=== PATIENT | male | born 1975 | race American Indian/Alaskan Native ===

== ENCOUNTER 2017-10-27 00:51 | Emergency (ER) | payer OTHER ==
[2017-10-27 01:42] LABS: Calcium 9.2 mg/dL (8.4-10.2)
[2017-10-27 01:51] LABS: Basophils # (Auto) 0.1 K/mm3 (0.0-0.1); Basophils % (Auto) 0.9 % (0.0-1.8); Eosinophils % (Auto) 0.6 % (0.0-4.3); Hematocrit 34.9 % (35.5-45.6); Hemoglobin 11.3 gm/dl (11.8-15.2); Lymphocytes # (Auto) 1.1 K/mm3 (1.2-5.4); Lymphocytes % (Auto) 12.9 % (13.4-35.0); Mean Corpuscular HGB Conc 32 % (32-34); Mean Corpuscular Hemoglobin 29 pg (28-32); Mean Corpuscular Volume 89 fl (84-94); Monocytes # (Auto) 0.5 K/mm3 (0.0-0.8); Monocytes % (Auto) 6.5 % (0.0-7.3); Platelet Count 182 K/mm3 (140-440); Red Cell Distribution Width 14.7 % (13.2-15.2)
[2017-10-27 03:24] LABS: Bilirubin,Urine NEG (Negative); Blood,Urine SM (Negative); Color,Urine Yellow (Yellow); Hyaline Casts,Urine 13 /LPF; Mucus,Urine FEW /HPF; Urobilinogen,Urine < 2.0 mg/dL (<2.0)
[2017-10-27] MEDS ORDERED: NACL 0.9% 1000 ML 1,000 ML IV ONE (06:48)
[2017-10-27] MEDS ORDERED: HumuLIN R IV ONE (06:48)
--- NOTE | 2017-10-27 06:48 | Emergency Department Report ---
HPI - General Chief Complaint: Wound/Laceration Time Seen by Provider: 10/27/17 06:40 - HPI HPI: 42-year-old -[place] male presents to the emergency department last night with a complaint of right foot pain. The patient has a history of a chronic diabetic ulcer/wound to that right foot and he says "it has never closed. However he just recently started having some intense throbbing pains. He states that he does a lot of walking. The patient also presents with elevated blood sugar. He is a insulin-dependent diabetic and says he has been compliant with his medications. He also has a history of GERD, hypertension, chronic kidney disease and gastroparesis. He has primary care through [facility]. He did not take anything for her symptoms prior to presentation. He denies any fever, nausea, vomiting, chest pain, shortness of breath. ED Past Medical Hx - Past Medical History Previous Medical History?: Yes Hx Hypertension: Yes Hx Congestive Heart Failure: No Hx Diabetes: Yes Hx GERD: Yes Hx Renal Disease: Yes Hx Asthma: No Hx COPD: No Hx HIV: No Additional medical history: Gastroparesis - Surgical History Past Surgical History?: Yes Hx Cholecystectomy: Yes Additional Surgical History: right foot - Social History Smoking Status: Never Smoker Substance Use Type: Marijuana - Medications Home Medications: Home Medications Medication Instructions Recorded Confirmed Last Taken Type Insulin NPH Hum/Reg Insulin Hm 10 units SQ BID #1 vial 07/24/14 07/09/16 Rx [NovoLIN 70-30 100 Unit/ml Vial] Lisinopril [Zestril TAB] 10 mg PO QDAY #30 tablet 07/10/16 Unknown Rx HYDROcodone/ACETAMINOPHEN [[place] 1 each PO Q8H PRN #10 tablet 10/27/17 Unknown Rx 5-325 Tablet] Sulfamethoxazole/Trimethoprim 1 each PO BID #14 tablet 10/27/17 Unknown Rx [Bactrim DS TAB] ED Review of Systems ROS: Stated complaint: RIGHT FOOT LACERATION Other details as noted in HPI Comment: All other systems reviewed and negative Constitutional: denies: chills, fever Eyes: denies: eye pain, eye discharge, vision change ENT: denies: ear pain, throat pain Respiratory: denies: cough, shortness of breath, wheezing Cardiovascular: denies: chest pain, palpitations Endocrine: increased thirst, increased urine Gastrointestinal: denies: abdominal pain, nausea, diarrhea Genitourinary: frequency. denies: dysuria Musculoskeletal: arthralgia. denies: back pain Skin: other (wound). denies: rash Neurological: denies: headache, weakness, paresthesias Physical Exam - Physical Exam Vital Signs: Vital Signs 10/27/17 10/27/17 00:56 06:16 Temperature 98.0 F 98.2 F Pulse Rate 110 H 108 H Respiratory 18 Rate Blood Pressure 108/63 Blood Pressure 110/63 [Left] O2 Sat by Pulse 98 Oximetry Physical Exam: GENERAL: The patient is well-developed well-nourished. HENT: Normocephalic. Atraumatic. Patient has moist mucous membranes. EYES: Extraocular motions are intact. Pupils equal reactive to light bilaterally. NECK: Supple. Trachea is midline. CHEST/LUNGS: Clear to auscultation. There is no respiratory distress noted. HEART/CARDIOVASCULAR: Regular. There is no tachycardia. There is no murmur. ABDOMEN: Abdomen is soft, nontender. Patient has normal bowel sounds. There is no abdominal distention. SKIN: There is a circular stage II ulcer to the right lateral midfoot. No surrounding erythema. No bleeding or discharge. NEURO: The patient is awake, alert, and oriented. The patient is cooperative. The patient has no focal neurologic deficits. The patient has normal speech. MUSCULOSKELETAL: There is some mild tenderness on patient to the right midfoot with the patient has a ulcer/wound. There is no limitation range of motion. Pedal pulses +2 over 4 to the affected right foot. ED Course Vital Signs 10/27/17 10/27/17 00:56 06:16 Temperature 98.0 F 98.2 F Pulse Rate 110 H 108 H Respiratory 18 Rate Blood Pressure 108/63 Blood Pressure 110/63 [Left] O2 Sat by Pulse 98 Oximetry ED Medical Decision Making - Lab Data Result diagrams: 10/27/17 01:06 10/27/17 10:07 - Radiology Data Radiology results: report reviewed EXAM: XR FOOT 3+V RT HISTORY: diabetic wound, rule out osteomyelitis TECHNIQUE: Three views of the right foot were submitted. There are no previous studies available for comparison. FINDINGS: There is previous amputation of the distal end of the 5th metatarsal. The amputation stump appears intact. The 5th toe is unremarkable. There is soft tissue swelling overlying the lateral aspect of the base of the 5th metatarsal. There are no definite erosive changes that would suggest osteomyelitis at this time. IMPRESSION: Status post amputation of the distal end of the 5th metatarsal. The amputation stump appears intact. Soft tissue swelling/cellulitis along the lateral aspect overlying the base of the 5th metatarsal. No erosive changes to suggest osteomyelitis. MRI of the foot is recommended for better overall valuation for marrow edema/osteomyelitis. Transcribed By: RB Dictated By: ANDRES NAVA MD Electronically Authenticated By: ANDRES NAVA MD Signed Date/Time: 10/27/17 3510 - Medical Decision Making Patient presented originally with pain to the foot where he has a diabetic ulcer. However he was found to have very elevated blood sugar and uncontrolled diabetes. Regarding the foot pain and also, x-ray was done that showed some soft tissue swelling but no signs of osteomyelitis. Patient was empirically covered with a IV dose of vancomycin. He was given a single IV dose of regular insulin and a liter of IV fluid and upon reevaluation his blood sugar is down to about 130. His venous pH and BMP were rechecked and there is no further acidosis and the rest of the blood work is improved as well. Vital signs stable throughout his course. The patient says that he has a primary care physician for follow-up. He will be given antibiotics, a small amount of pain medication and a referral for podiatry. He has been encouraged to return to the emergency Department with any worsening of symptoms or any acute distress. - Differential Diagnosis diabetic foot ulcer, DKA, HHNK, cellulitis Critical Care Time: No Critical care attestation.: If time is entered above; I have spent that time in minutes in the direct care of this critically ill patient, excluding procedure time. ED Disposition Clinical Impression: Hyperglycemia without ketosis, Renal insufficiency Diabetes Qualifiers: Diabetes mellitus type: type 2 Diabetes mellitus complication status: with hyperglycemia Diabetic foot ulcer Qualifiers: Diabetic foot ulcer location: midfoot Diabetes mellitus type: type 2 Laterality : right Non-pressure ulcer stage: with fat layer exposed Qualified Code(s): E11.621 - Type 2 diabetes mellitus with foot ulcer Disposition: DC-01 TO HOME OR SELFCARE Is pt being admited?: No Condition: Stable Instructions: Diabetic Foot Ulcers (ED), Arthralgia (ED), Diabetic Hyperglycemia (ED) Additional Instructions: Please follow up with your primary care physician in the next few days. I have given you a referral for a local eye surgeon, Dr. King, as well as a wound care clinic. Take the antibiotics as prescribed. Keep the area clean with soap and water and then keep it dry. Keep a blood pressure log and continue with your diabetes medications. Try and stay away from foods that are high in sugar, carbohydrates and starches to help with her diabetes. Return to the emergency Department with any worsening of your symptoms or any acute distress. You have been prescribed a medication that is sedating and therefore should not be taken prior to driving, working, and responsible for children and in no way should be mixed with alcohol of any quantity. Prescriptions: HYDROcodone/ACETAMINOPHEN [[place] 5-325 Tablet] 1 each PO Q8H PRN #10 tablet PRN Reason: Pain Sulfamethoxazole/Trimethoprim [Bactrim DS TAB] 1 each PO BID #14 tablet Referrals: MANSOOR KING MD [Staff Physician] - 3-5 Days [facility] [Outside] - 3-5 Days Time of Disposition: 11:31
[2017-10-27] MEDS ORDERED: VANCOMYCIN/NS 1 GM/250 ML 1 GM/250 ML BAG IV SCH (07:00)
[2017-10-27] MEDS ORDERED: VANCOMYCIN/0.45 NS 1 GM/250 ML 1 GM/250 ML BAG IV ONE (07:00)
--- NOTE | 2017-10-27 07:15 | XRay Report ---
FINAL REPORT EXAM: XR FOOT 3+V RT HISTORY: diabetic wound, rule out osteomyelitis TECHNIQUE: Three views of the right foot were submitted. There are no previous studies available for comparison. FINDINGS: There is previous amputation of the distal end of the 5th metatarsal. The amputation stump appears intact. The 5th toe is unremarkable. There is soft tissue swelling overlying the lateral aspect of the base of the 5th metatarsal. There are no definite erosive changes that would suggest osteomyelitis at this time. IMPRESSION: Status post amputation of the distal end of the 5th metatarsal. The amputation stump appears intact. Soft tissue swelling/cellulitis along the lateral aspect overlying the base of the 5th metatarsal. No erosive changes to suggest osteomyelitis. MRI of the foot is recommended for better overall valuation for marrow edema/osteomyelitis.
[2017-10-27] MEDS ORDERED: NORCO 5/325 PO ONE (08:30)
[2017-10-27 10:44] LABS: Calcium 9.1 mg/dL (8.4-10.2)
[2017-10-27 11:53] VITALS: BP 149/97
== END 2017-10-27 11:56 | disposition home or self-care (01) ==
LOC: ED 00:51
DX: E11.22 Type 2 diabetes mellitus with diabetic chronic kidney disease (principal); E11.621 Type 2 diabetes mellitus with foot ulcer; E11.65 Type 2 diabetes mellitus with hyperglycemia; I12.9 Hypertensive chronic kidney disease with stage 1 through stage 4 chronic kidney disease, or unspecified chronic kidney disease; N18.9 Chronic kidney disease, unspecified; K21.9 Gastro-esophageal reflux disease without esophagitis; F12.10 Cannabis abuse, uncomplicated; Z79.4 Long term (current) use of insulin; Z90.49 Acquired absence of other specified parts of digestive tract
CPT/HCPCS: 36415; 73630; 80048; 81001; 82805; 82962; 83930; 85025; 96361; 96365; 96375; 99284; J7030; J1815; J3370

== ENCOUNTER 2017-12-15 20:52 | Inpatient (IN) | payer OTHER ==
[2017-12-15 21:43] LABS: Basophils # (Auto) 0.1 K/mm3 (0.0-0.1); Basophils % (Auto) 0.6 % (0.0-1.8); Hematocrit 41.1 % (35.5-45.6); Hemoglobin 13.2 gm/dl (11.8-15.2); Lymphocytes # (Auto) 1.9 K/mm3 (1.2-5.4); Lymphocytes % (Auto) 12.1 % (13.4-35.0); Mean Corpuscular HGB Conc 32 % (32-34); Mean Corpuscular Hemoglobin 28 pg (28-32); Mean Corpuscular Volume 88 fl (84-94); Monocytes # (Auto) 1.1 K/mm3 (0.0-0.8); Monocytes % (Auto) 6.7 % (0.0-7.3); Red Blood Count 4.67 M/mm3 (3.65-5.03); Red Cell Distribution Width 14.6 % (13.2-15.2)
[2017-12-15 21:44] LABS: Platelet Count 183 K/mm3 (140-440)
[2017-12-15 21:58] LABS: Bacteria,Urine 1+ /HPF (Negative); Bilirubin,Urine NEG (Negative); Blood,Urine MOD (Negative); Color,Urine Yellow (Yellow); Hyaline Casts,Urine 1 /LPF; Mucus,Urine FEW /HPF; Urobilinogen,Urine < 2.0 mg/dL (<2.0)
[2017-12-15 22:10] LABS: Albumin 4.3 g/dL (3.9-5); Calcium 10.4 mg/dL (8.4-10.2)
[2017-12-15] MEDS ORDERED: NACL 0.9% 1000 ML 1,000 ML IV ONE (23:42)
[2017-12-15] MEDS ORDERED: SUBLIMAZE IV ONE (23:47)
[2017-12-15] MEDS ORDERED: ZOFRAN IV ONE (23:47)
[2017-12-15] MEDS ORDERED: PEPCID IV ONE (23:50)
--- NOTE | 2017-12-15 23:52 | Emergency Department Report ---
HPI - General Chief Complaint: Abdominal Pain Time Seen by Provider: 12/15/17 23:40 - HPI HPI: Room 5 The patient is a 42-year-old male presenting with a chief complaint of abdominal pain nausea and vomiting. The patient states today his "acid reflux started acting up" and he developed intractable nausea and vomiting. Patient also complains of burning pain in the midepigastric region constant since this morning. Patient denies fever or diarrhea. Patient denies sick contacts. Patient denies dysuria. The patient gives his pain a score of 10/10 Location: Abdomen Duration: Constant since this morning Quality: Burning Severity: 10/10 Modifying factors: [see above] Context: [see above] Mode of transportation: [not driving] ED Past Medical Hx - Past Medical History Hx Hypertension: Yes Hx Diabetes: Yes Hx GERD: Yes Hx Renal Disease: Yes Additional medical history: Gastroparesis - Surgical History Hx Cholecystectomy: Yes Additional Surgical History: right foot - Family History Family history: no significant - Social History Smoking Status: Never Smoker Substance Use Type: None, Marijuana - Medications Home Medications: Home Medications Medication Instructions Recorded Confirmed Last Taken Type Insulin NPH Hum/Reg Insulin Hm 10 units SQ BID #1 vial 07/24/14 07/09/16 Rx [NovoLIN 70-30 100 Unit/ml Vial] HYDROcodone/ACETAMINOPHEN [[place] 1 each PO Q8H PRN #10 tablet 10/27/17 Unknown Rx 5-325 Tablet] ED Review of Systems ROS: Stated complaint: ABD PAIN,HYPERGLYCEMIA Other details as noted in HPI Constitutional: denies: fever Eyes: denies: eye pain ENT: denies: throat pain Cardiovascular: denies: chest pain Gastrointestinal: abdominal pain, nausea, vomiting. denies: diarrhea Genitourinary: denies: dysuria Musculoskeletal: denies: back pain Neurological: denies: headache Physical Exam - Physical Exam Vital Signs: Vital Signs 12/15/17 12/15/17 20:56 21:08 Temperature 99.7 F H 99.7 F H Pulse Rate 114 H 114 H Respiratory 22 22 Rate Blood Pressure 147/97 147/97 O2 Sat by Pulse 99 100 Oximetry Physical Exam: GENERAL: The patient is well-developed well-nourished male lying on stretcher appearing to be in mild discomfort. [] HEENT: Normocephalic. Atraumatic. Extraocular motions are intact. NECK: Supple. Trachea midline CHEST/LUNGS: Clear to auscultation. There is no respiratory distress noted. HEART/CARDIOVASCULAR: Regular. There is no tachycardia. There is no gallop rub or murmur. ABDOMEN: Abdomen is soft, and nontender to palpation in the left upper quadrant , left lower quadrant, right lower quadrant. There is trace discomfort to palpation in the right upper quadrant and patient complains of pain in the midepigastric region. Patient has normal bowel sounds. There is no abdominal distention. SKIN: There is no rash. There is no edema. There is no diaphoresis. NEURO: The patient is awake, alert, and oriented. The patient is cooperative. The patient has normal speech MUSCULOSKELETAL: There is no evidence of acute injury. ED Course Vital Signs 12/15/17 12/15/17 20:56 21:08 Temperature 99.7 F H 99.7 F H Pulse Rate 114 H 114 H Respiratory 22 22 Rate Blood Pressure 147/97 147/97 O2 Sat by Pulse 99 100 Oximetry ED Medical Decision Making - Lab Data Result diagrams: 12/15/17 21:17 12/15/17 21:17 Laboratory Tests 12/15/17 12/15/17 12/15/17 21:17 21:17 21:17 WBC 16.0 H RBC 4.67 Hgb 13.2 Hct 41.1 MCV 88 MCH 28 MCHC 32 RDW 14.6 Plt Count 183 Lymph % (Auto) 12.1 L [place] % (Auto) 6.7 Eos % (Auto) 0.0 Baso % (Auto) 0.6 Lymph # 1.9 [place] # 1.1 H Eos # 0.0 Baso # 0.1 Seg Neutrophils % 80.6 H Seg Neutrophils # 12.9 H VBG pH 7.427 H Sodium 132 L Potassium 4.4 Chloride 90.8 L Carbon Dioxide 21 L Anion Gap 25 BUN 44 H Creatinine 2.8 H Estimated GFR 30 BUN/Creatinine Ratio 16 Glucose 349 H Calcium 10.4 H Total Bilirubin 0.40 AST 17 ALT 15 Alkaline Phosphatase 138 H Total Protein 8.7 H Albumin 4.3 Albumin/Globulin Ratio 1.0 Lipase 20 Urine Color Urine Turbidity Urine pH Ur Specific [place] Urine Protein Urine Glucose (UA) Urine Ketones Urine Blood Urine Nitrite Urine Bilirubin Urine Urobilinogen Ur Leukocyte Esterase Urine WBC (Auto) Urine RBC (Auto) U Epithel Cells (Auto) Urine Bacteria (Auto) Hyaline Casts Urine Mucus 12/15/17 Unknown WBC RBC Hgb Hct MCV MCH MCHC RDW Plt Count Lymph % (Auto) [place] % (Auto) Eos % (Auto) Baso % (Auto) Lymph # [place] # Eos # Baso # Seg Neutrophils % Seg Neutrophils # VBG pH Sodium Potassium Chloride Carbon Dioxide Anion Gap BUN Creatinine Estimated GFR BUN/Creatinine Ratio Glucose Calcium Total Bilirubin AST ALT Alkaline Phosphatase Total Protein Albumin Albumin/Globulin Ratio Lipase Urine Color Yellow Urine Turbidity Clear Urine pH 5.0 Ur Specific [place] 1.021 Urine Protein 100 mg/dl Urine Glucose (UA) >=500 Urine Ketones Tr Urine Blood Mod Urine Nitrite Neg Urine Bilirubin Neg Urine Urobilinogen < 2.0 Ur Leukocyte Esterase Tr Urine WBC (Auto) 14.0 H Urine RBC (Auto) 3.0 U Epithel Cells (Auto) 1.0 Urine Bacteria (Auto) 1+ Hyaline Casts 1 Urine Mucus Few - Radiology Data Radiology results: report reviewed (CT abdomen and pelvis), image reviewed (CT abdomen and pelvis) - Differential Diagnosis gastroparesis, partial small bowel obstruction, pancreatitis, peptic ulcer Critical care attestation.: If time is entered above; I have spent that time in minutes in the direct care of this critically ill patient, excluding procedure time. ED Disposition Clinical Impression: Acute abdominal pain, Dehydration, Acute on chronic renal insufficiency Disposition: OP ADMIT IP TO THIS HOSP Is pt being admited?: Yes Does the pt Need Aspirin: No Condition: Fair Referrals: PRIMARY CARE, [Primary Care Provider] - 3-5 Days Time of Disposition: 00:45 (hospitalist paged (Dr. Catrachita Shipley))
--- NOTE | 2017-12-16 00:42 | Cat Scan Report ---
FINAL REPORT PROCEDURE: CT ABDOMEN PELVIS WO CON TECHNIQUE: Computerized axial tomography of the abdomen and pelvis was performed without intravenous contrast. This study is performed without intravascular contrast material and its sensitivity for abdominal and pelvic pathology, including neoplasms, inflammation, abscess, free fluid, thrombosis, arterial dissection and infarction, is reduced compared with a contrast enhanced study. HISTORY: epigastric abdominal pain, intractable nausea vomi COMPARISON: 12/11/2015 FINDINGS: Visualized lower thorax: No significant abnormality. Liver: Normal size and attenuation. Spleen: Normal size and attenuation. Gallbladder and biliary system: Gallbladder is absent. No dilatation of the biliary ductal system. Pancreas: Normal. Adrenals: Normal. Kidneys: Normal. GI tract: No obstruction. No ileus or enteritis. The cecum, appendix and colon are normal.. Lymph nodes and mesentery: Normal. Vasculature: Normal. Bladder: Normal. Reproductive organs: Normal. Peritoneum: No free fluid. Musculoskeletal structures: No significant abnormality. Other: None. IMPRESSION: There is no evidence of intestinal or urinary tract obstruction. No ileus or enteritis. The appendix is normal..
[2017-12-16] MEDS ORDERED: ROCEPHIN/NS 1 GM/50 ML 1 GM/50 ML BAG IV ONE (01:02)
[2017-12-16] MEDS ORDERED: cefTRIAXone 1 GM in NACL 0.9% 20 ML IV ONE (01:15)
[2017-12-16] MEDS ORDERED: SUBLIMAZE IV ONE (03:54)
[2017-12-16] MEDS: ZOFRAN IV PRN (04:54)
[2017-12-16] MEDS ORDERED: NACL 0.9% 1000 ML 1,000 ML IV SCH (05:00)
[2017-12-16] MEDS ORDERED: SODIUM CHLORIDE FLUSH SYRINGE 10 ML IV PRN (06:06)
[2017-12-16] MEDS ORDERED: APRESOLINE IV ONE (06:06)
[2017-12-16] MEDS ORDERED: ZOFRAN IV PRN (06:06)
[2017-12-16] MEDS ORDERED: TYLENOL PO PRN (06:06)
[2017-12-16] MEDS ORDERED: REGLAN IV PRN (06:06)
[2017-12-16] MEDS ORDERED: D50W (25GM) Syringe IV PRN (06:06)
--- NOTE | 2017-12-16 06:06 | History and Physical Report ---
History of Present Illness Date of examination: 12/09/17 Date of admission: 12/16/17 01:02 History of present illness: 42-year-old male with a history of hypertension, diabetes complicated by gastroparesis, GERD, see emergency room with complaints of nausea and vomiting that started yesterday, multiple episodes, but started oral intake. Also complaining of abdominal pain located in the mid lower abdomen which she described as a burning sensation, constant, intensity 6/10, no radiation, genitals and exacerbating or relieving factors. No fever chills, diarrhea Review of systems Constitutional: no weight loss, chills Ears, eyes, nose, mouth and throat: no nasal congestion, no nasal discharge, no sinus pressure, no vision change, no red eye. Neck: No neck pain or rigidity. Cardiovascular: no chest pain, palpitations Respiratory: No cough, shortness of breath Gastrointestinal: no hematochezia Genitourinary : no dysuria, frequency , no hematuria Musculoskeletal: no joint swelling or muscle ache Integumentary: no rash, no pruritis Neurological: no parathesias, no numbness, no focal weakness Endocrine: no cold or heat intolerance, no polyuria or polydipsia Hematologic/Lymphatic: no easy bruising, no easy bleeding, no gland swelling Allergic/Immunologic: no urticaria, no angioedema. PAST MEDICAL HISTORY: Hypertension, diabetes complicated by gastroparesis, GERD PAST SURGICAL HISTORY: Cholecystectomy SOCIAL HISTORY: Denies alcohol, tobacco, drugs FAMILY HISTORY: Hypertension, diabetes Medications and Allergies Allergies Allergy/AdvReac Type Severity Reaction Status Date / Time No Known Allergies Allergy Verified 12/11/15 07:34 Home Medications Medication Instructions Recorded Confirmed Last Taken Type Insulin NPH Hum/Reg Insulin Hm 10 units SQ BID #1 vial 07/24/14 12/16/17 Rx [NovoLIN 70-30 100 Unit/ml Vial] HYDROcodone/ACETAMINOPHEN [[place] 1 each PO Q8H PRN #10 tablet 10/27/17 12/16/17 Unknown Rx 5-325 Tablet] Active Meds: Active Medications Sodium Chloride (Nacl 0.9% 1000 Ml) 1,000 mls @ 150 mls/hr IV DIRECT BROWN Last Admin: 12/16/17 05:19 Dose: 150 mls/hr Ondansetron HCl (Zofran) 4 mg IV Q4H PRN PRN Reason: N/V IF NPO AND NO IV ACCESS Last Admin: 12/16/17 04:54 Dose: 4 mg Exam - Physical Exam Narrative exam: Gen. appearance: Patient lying in bed, no apparent distress HEENT: Normocephalic, atraumatic, pupils equally round and reactive to light, extraocular movement intact, and no sclericterus,. No JVD or thyromegaly or nodule,neck supple, no carotid bruit ,mucous membranes moist, no exudate or erythema Heart: S1, S2, regular rate and rhythm Lungs: Clear to auscultation bilaterally, breathing comfortable Abdomen: Positive bowel sounds, tender over, nondistended, no organomegaly Extremity: No edema, cyanosis, clubbing Skin: No rash, nodules, warm, dry Neuro: Oriented 3, cranial nerves II-12 intact, speech is fluent, motor and sensory intact - Constitutional Vitals: Temp Pulse Resp BP Pulse Ox 98.8 F 104 H 17 161/115 98 12/16/17 00:08 12/16/17 03:00 12/16/17 05:00 12/16/17 05:00 12/16/17 05:00 Results - Labs CBC & Chem 7: 12/15/17 21:17 12/15/17 21:17 Labs: Abnormal lab results 12/15/17 12/15/17 12/15/17 Range/Units 21:17 21:17 21:17 WBC 16.0 H (4.5-11.0) K/mm3 Lymph % (Auto) 12.1 L (13.4-35.0) % [place] # 1.1 H (0.0-0.8) K/mm3 Seg Neutrophils % 80.6 H (40.0-70.0) % Seg Neutrophils # 12.9 H (1.8-7.7) K/mm3 VBG pH 7.427 H (7.320-7.420) Sodium 132 L (137-145) mmol/L Chloride 90.8 L (98-107) mmol/L Carbon Dioxide 21 L (22-30) mmol/L BUN 44 H (9-20) mg/dL Creatinine 2.8 H (0.8-1.5) mg/dL Glucose 349 H (75-100) mg/dL POC Glucose (70-105) Calcium 10.4 H (8.4-10.2) mg/dL Alkaline Phosphatase 138 H (35-129) units/L Total Protein 8.7 H (6.3-8.2) g/dL Urine WBC (Auto) (0.0-6.0) /HPF 12/15/17 12/16/17 Range/Units Unknown 00:34 WBC (4.5-11.0) K/mm3 Lymph % (Auto) (13.4-35.0) % [place] # (0.0-0.8) K/mm3 Seg Neutrophils % (40.0-70.0) % Seg Neutrophils # (1.8-7.7) K/mm3 VBG pH (7.320-7.420) Sodium (137-145) mmol/L Chloride (98-107) mmol/L Carbon Dioxide (22-30) mmol/L BUN (9-20) mg/dL Creatinine (0.8-1.5) mg/dL Glucose (75-100) mg/dL POC Glucose 284 H (70-105) Calcium (8.4-10.2) mg/dL Alkaline Phosphatase (35-129) units/L Total Protein (6.3-8.2) g/dL Urine WBC (Auto) 14.0 H (0.0-6.0) /HPF - Imaging and Cardiology CT scan - abdomen: report reviewed CT scan - pelvis: report reviewed Assessment and Plan Assessment Acute renal failure Sepsis UTI Acute on chronic gastroparesis Hypertension uncontrolled Pain Admit to medicine Start IV fluid, IV Rocephin, anti-emetics Follow cultures, IV hydralazine for blood pressure control DVT prophylaxis
[2017-12-16] MEDS: NACL 0.45% 1000 ML 1,000 ML IV SCH ×2 (06:42→16:23)
[2017-12-16] MEDS ORDERED: APRESOLINE IV PRN (07:31)
[2017-12-16 09:06] LABS: Hematocrit 36.7 % (35.5-45.6); Hemoglobin 11.9 gm/dl (11.8-15.2); Mean Corpuscular HGB Conc 33 % (32-34); Mean Corpuscular Hemoglobin 29 pg (28-32); Mean Corpuscular Volume 90 fl (84-94); Platelet Count 199 K/mm3 (140-440); Red Blood Count 4.09 M/mm3 (3.65-5.03); Red Cell Distribution Width 14.5 % (13.2-15.2)
[2017-12-16 09:32] LABS: Calcium 9.4 mg/dL (8.4-10.2)
[2017-12-16] MEDS: MORPHINE IV PRN ×3 (09:54→18:52)
[2017-12-16] MEDS ORDERED: ROCEPHIN/NS 1 GM/50 ML 1 GM/50 ML BAG IV SCH (10:00)
--- NOTE | 2017-12-16 10:21 | Event Note ---
Date: 12/16/17 Patient with nausea, vomiting, abd pain. Creatinine 2.4. Unclear if he has CKD diagnosis. I have seen and examined him.
[2017-12-16] MEDS: HumaLOG SUB-Q SCH ×4 (11:17→22:16)
[2017-12-16] MEDS: cefTRIAXone 1 GM in NACL 0.9% 20 ML IV SCH (11:18)
[2017-12-16] MEDS: NORVASC PO SCH (11:18)
[2017-12-16] MEDS: APRESOLINE PO SCH ×3 (11:18→22:19)
[2017-12-16] MEDS: SODIUM CHLORIDE FLUSH SYRINGE 10 ML IV SCH ×2 (11:19→23:50)
[2017-12-16] MEDS ORDERED: AMBIEN PO ONE (22:14)
[2017-12-17] MEDS: MORPHINE IV PRN ×5 (02:23→22:06)
[2017-12-17] MEDS: NACL 0.45% 1000 ML 1,000 ML IV SCH (02:27)
[2017-12-17] MEDS: ZOFRAN IV PRN ×2 (03:57→10:40)
[2017-12-17] MEDS: APRESOLINE PO SCH ×3 (06:32→22:10)
[2017-12-17 07:30] LABS: Basophils # (Auto) 0.1 K/mm3 (0.0-0.1); Basophils % (Auto) 0.6 % (0.0-1.8); Eosinophils % (Auto) 0.1 % (0.0-4.3); Hematocrit 38.9 % (35.5-45.6); Hemoglobin 13.4 gm/dl (11.8-15.2); Lymphocytes # (Auto) 1.3 K/mm3 (1.2-5.4); Mean Corpuscular HGB Conc 35 % (32-34); Mean Corpuscular Hemoglobin 30 pg (28-32); Mean Corpuscular Volume 87 fl (84-94); Monocytes # (Auto) 0.5 K/mm3 (0.0-0.8); Monocytes % (Auto) 5.6 % (0.0-7.3); Platelet Count 181 K/mm3 (140-440); Red Blood Count 4.45 M/mm3 (3.65-5.03); Red Cell Distribution Width 14.5 % (13.2-15.2)
[2017-12-17 07:48] LABS: Calcium 9.2 mg/dL (8.4-10.2)
--- NOTE | 2017-12-17 09:06 | Progress Note ---
Assessment and Plan Assessment and plan: ANNE. Improvoved slightly.' Consult Nephrology Gastroparesis Hospitalist Physical - Physical exam Narrative exam: General:Not in acute distress, lying in bed,obese HEENT:Normocephalic, atraumatic Neck:supple,no JVD Lungs: Clear to auscultation, no rales, no wheeze Heart:S1 and S2 regular, no murmurs, rubs or gallop Abd: soft, non tender,non distended, normal bowel sounds Ext:no edema, no clubbing or cyanosis Neuro:Awake,alert,oriented x 3, moves all extremities, Psych:normal mood - Constitutional Vitals: Temp Pulse Resp BP Pulse Ox 98.7 F 96 H 18 107/64 97 12/17/17 07:55 12/17/17 07:55 12/17/17 07:55 12/17/17 07:55 12/17/17 07:55 Results - Labs CBC & Chem 7: 12/17/17 06:41 12/17/17 06:41 Labs: Laboratory Last Values WBC 9.4 K/mm3 (4.5-11.0) 12/17/17 06:41 RBC 4.45 M/mm3 (3.65-5.03) 12/17/17 06:41 Hgb 13.4 gm/dl (11.8-15.2) 12/17/17 06:41 Hct 38.9 % (35.5-45.6) 12/17/17 06:41 MCV 87 fl (84-94) 12/17/17 06:41 MCH 30 pg (28-32) 12/17/17 06:41 MCHC 35 % (32-34) H 12/17/17 06:41 RDW 14.5 % (13.2-15.2) 12/17/17 06:41 Plt Count 181 K/mm3 (140-440) 12/17/17 06:41 Lymph % (Auto) 14.0 % (13.4-35.0) 12/17/17 06:41 [place] % (Auto) 5.6 % (0.0-7.3) 12/17/17 06:41 Eos % (Auto) 0.1 % (0.0-4.3) 12/17/17 06:41 Baso % (Auto) 0.6 % (0.0-1.8) 12/17/17 06:41 Lymph # 1.3 K/mm3 (1.2-5.4) 12/17/17 06:41 [place] # 0.5 K/mm3 (0.0-0.8) 12/17/17 06:41 Eos # 0.0 K/mm3 (0.0-0.4) 12/17/17 06:41 Baso # 0.1 K/mm3 (0.0-0.1) 12/17/17 06:41 Seg Neutrophils % 79.7 % (40.0-70.0) H 12/17/17 06:41 Seg Neutrophils # 7.4 K/mm3 (1.8-7.7) 12/17/17 06:41 VBG pH 7.427 (7.320-7.420) H 12/15/17 21:17 Sodium 133 mmol/L (137-145) L 12/17/17 06:41 Potassium 4.1 mmol/L (3.6-5.0) 12/17/17 06:41 Chloride 94.3 mmol/L (98-107) L 12/17/17 06:41 Carbon Dioxide 24 mmol/L (22-30) 12/17/17 06:41 Anion Gap 19 mmol/L 12/17/17 06:41 BUN 38 mg/dL (9-20) H 12/17/17 06:41 Creatinine 2.0 mg/dL (0.8-1.5) H 12/17/17 06:41 Estimated GFR 44 ml/min 12/17/17 06:41 BUN/Creatinine Ratio 19 % 12/17/17 06:41 Glucose 287 mg/dL (75-100) H 12/17/17 06:41 POC Glucose 267 (70-105) H 12/17/17 05:32 Calcium 9.2 mg/dL (8.4-10.2) 12/17/17 06:41 Total Bilirubin 0.40 mg/dL (0.1-1.2) 12/15/17 21:17 AST 17 units/L (5-40) 12/15/17 21:17 ALT 15 units/L (7-56) 12/15/17 21:17 Alkaline Phosphatase 138 units/L (35-129) H 12/15/17 21:17 Total Protein 8.7 g/dL (6.3-8.2) H 12/15/17 21:17 Albumin 4.3 g/dL (3.9-5) 12/15/17 21:17 Albumin/Globulin Ratio 1.0 % 12/15/17 21:17 Lipase 20 units/L (13-60) 12/15/17 21:17 Urine Color Yellow (Yellow) 12/15/17 Unknown Urine Turbidity Clear (Clear) 12/15/17 Unknown Urine pH 5.0 (5.0-7.0) 12/15/17 Unknown Ur Specific [place] 1.021 (1.003-1.030) 12/15/17 Unknown Urine Protein 100 mg/dl mg/dL (Negative) 12/15/17 Unknown Urine Glucose (UA) >=500 mg/dL (Negative) 12/15/17 Unknown Urine Ketones Tr mg/dL (Negative) 12/15/17 Unknown Urine Blood Mod (Negative) 12/15/17 Unknown Urine Nitrite Neg (Negative) 12/15/17 Unknown Urine Bilirubin Neg (Negative) 12/15/17 Unknown Urine Urobilinogen < 2.0 mg/dL (<2.0) 12/15/17 Unknown Ur Leukocyte Esterase Tr (Negative) 12/15/17 Unknown Urine WBC (Auto) 14.0 /HPF (0.0-6.0) H 12/15/17 Unknown Urine RBC (Auto) 3.0 /HPF (0.0-6.0) 12/15/17 Unknown U Epithel Cells (Auto) 1.0 /HPF (0-13.0) 12/15/17 Unknown Urine Bacteria (Auto) 1+ /HPF (Negative) 12/15/17 Unknown Hyaline Casts 1 /LPF 12/15/17 Unknown Urine Mucus Few /HPF 12/15/17 Unknown
[2017-12-17] MEDS: HumaLOG SUB-Q SCH ×4 (09:37→22:07)
[2017-12-17] MEDS: NORVASC PO SCH (09:38)
[2017-12-17] MEDS ORDERED: PROTONIX PO SCH (11:00)
--- NOTE | 2017-12-17 12:30 | Consultation ---
History of Present Illness - Reason for Consult Consult date: 12/17/17 acute renal failure, chronic renal failure, hyponatremia - History of Present Illness The patient is a 42-year-old AAM with a history significant for Hypertension, Type 2 diabetes, Gastroparesis and GERD who came to the ER with complaints of nausea and vomiting for about 2 days. He had multiple episodes of non-bloody emesis. He also reports having pain over mid-abdomen, which was constant, not radiating and burning in nature. Patient denies any fever, chills, diarrhea, weakness, dizziness, syncope, muscle cramps, dysuria or hematuria. His creatinine was 2.8 on admission. Past History Past Medical History: diabetes, hypertension Medications and Allergies Allergies Allergy/AdvReac Type Severity Reaction Status Date / Time No Known Allergies Allergy Verified 12/11/15 07:34 Home Medications Medication Instructions Recorded Confirmed Last Taken Type Insulin NPH Hum/Reg Insulin Hm 10 units SQ BID #1 vial 07/24/14 12/16/17 Rx [NovoLIN 70-30 100 Unit/ml Vial] HYDROcodone/ACETAMINOPHEN [[place] 1 each PO Q8H PRN #10 tablet 10/27/17 12/16/17 Unknown Rx 5-325 Tablet] Active Meds: Active Medications Acetaminophen (Tylenol) 650 mg PO Q4H PRN PRN Reason: Pain MILD(1-3)/Fever >100.5/MOLINA Amlodipine Besylate (Norvasc) 5 mg PO QDAY [facility] Last Admin: 12/17/17 09:38 Dose: Not Given Dextrose (D50w (25gm) Syringe) 50 ml IV PRN PRN PRN Reason: Hypoglycemia Hydralazine HCl (Apresoline) 50 mg PO Q8HR [facility] Last Admin: 12/17/17 06:32 Dose: 50 mg Hydralazine HCl (Apresoline) 10 mg IV Q4HR PRN PRN Reason: For SBP>170 or DBP>110 Sodium Chloride (Nacl 0.45% 1000 Ml) 1,000 mls @ 100 mls/hr IV DIRECT [facility] Last Admin: 12/17/17 02:27 Dose: 100 mls/hr Ceftriaxone Sodium 1 gm/ (Sodium Chloride) 20 mls @ 2 mls/min IV Q24HR [facility] Last Admin: 12/16/17 11:18 Dose: 2 mls/min Insulin Human Lispro (Humalog) 0 unit SUB-Q ACHS [facility]; Protocol Last Admin: 12/17/17 09:37 Dose: 6 unit Metoclopramide HCl (Reglan) 5 mg IV Q6H PRN PRN Reason: Nausea And Vomiting Morphine Sulfate (Morphine) 2 mg IV Q4H PRN PRN Reason: Pain, Moderate (4-6) Last Admin: 12/17/17 10:40 Dose: 2 mg Ondansetron HCl (Zofran) 4 mg IV Q4H PRN PRN Reason: Nausea And Vomiting Pantoprazole Sodium (Protonix) 40 mg PO QDAY [facility] Sodium Chloride (Sodium Chloride Flush Syringe 10 Ml) 10 ml IV BID [facility] Last Admin: 12/16/17 23:50 Dose: 10 ml Sodium Chloride (Sodium Chloride Flush Syringe 10 Ml) 10 ml IV PRN PRN PRN Reason: LINE FLUSH Review of Systems Constitutional: no weight loss, no weight gain, no fever, no chills, no anorexia , no fatigue Ears, nose, mouth and throat: no epistaxis Cardiovascular: high blood pressure, no chest pain, no orthopnea, no edema, no syncope, no lightheadedness, no shortness of breath, no dyspnea on exertion, no leg edema Respiratory: no cough, no hemoptysis, no shortness of breath Gastrointestinal: abdominal pain, nausea, vomiting, no diarrhea, no hematemesis , no melena, no hematochezia Genitourinary Male: no dysuria, no hematuria, no incontinence Rectal: no bleeding Musculoskeletal: no muscle cramps Integumentary: no rash, no wounds, no jaundice Neurological: no paralysis, no seizures, no change in mentation, no confusion, no memory loss Psychiatric: no disorientation Endocrine: no weight change Exam - Vital Signs Vital signs: Vital Signs Temp Pulse Resp BP Pulse Ox 99.7 F H 114 H 22 147/97 99 12/15/17 20:56 12/15/17 20:56 12/15/17 20:56 12/15/17 20:56 12/15/17 20:56 - General Appearance General appearance: well-developed, well-nourished, appears stated age, other ( no distress) EENT: ATNC, PERRL, mucous membranes dry, hearing intact, vision intact Neck: Present: neck supple, trachea midline Respiratory: Clear to Ascultation Heart: regular, S1S2, no murmurs Gastrointestinal: Present: normoactive bowel sounds. Absent: tenderness, distended Integumentary: no rash, warm and dry Neurologic: no focal deficit, no asterixis, alert and oriented x3, CN 3-12 intact Musculoskeletal: Present: other (no edema) Psychiatric: mood/affect appropriate, cooperative Results - Lab Results 12/17/17 06:41 12/17/17 06:41 Most recent lab results Calcium 9.2 mg/dL (8.4-10.2) 12/17/17 06:41 - Image Kidney/bladder ultrasound: other Assessment and Plan 1. Acute kidney injury: Vasomotor / hemodynamic ANNE superimposed on CKD in the setting of volume depletion. Renal function is improving. Continue IV fluids. 2. Volume depletion. 3. Mild hyponatremia: Change IV fluids to NS. 4. Gastroparesis / Gastritis.
[2017-12-17] MEDS: NACL 0.9% 1000 ML 1,000 ML IV SCH (13:28)
[2017-12-17] MEDS: cefTRIAXone 1 GM in NACL 0.9% 20 ML IV SCH (13:28)
[2017-12-17] MEDS: SODIUM CHLORIDE FLUSH SYRINGE 10 ML IV SCH ×2 (13:30→22:06)
[2017-12-18 06:37] LABS: Calcium 8.9 mg/dL (8.4-10.2)
[2017-12-18] MEDS: MORPHINE IV PRN (07:06)
[2017-12-18] MEDS: NACL 0.9% 1000 ML 1,000 ML IV SCH (07:07)
[2017-12-18] MEDS: APRESOLINE PO SCH (07:09)
[2017-12-18 07:10] VITALS: BP 116/72
--- NOTE | 2017-12-18 08:35 | Progress Note ---
Assessment and Plan 1. Acute kidney injury: Vasomotor / hemodynamic ANNE superimposed on CKD in the setting of volume depletion. Renal function continue to improve. Encouraged PO fluids. 2. Volume depletion. 3. Mild hyponatremia: Sodium level is better. 4. Gastroparesis / Gastritis. F/u in 1-2 weeks. Subjective Date of service: 12/18/17 Interval history: Patient is feeling better. Objective - Vital Signs Vital signs: Vital Signs - 12hr 12/17/17 12/17/17 12/18/17 22:00 22:10 04:00 Pulse Rate 91 H 91 H Respiratory 16 Rate Blood Pressure 119/81 12/18/17 07:09 Pulse Rate 76 Respiratory Rate Blood Pressure 116/72 - General Appearance General appearance: well-developed, well-nourished, appears stated age, other ( no distress) EENT: ATNC, PERRL, mucous membranes moist, hearing intact, vision intact Neck: supple Respiratory: Present: Clear to Ascultation Cardiology: regular, S1S2, no murmurs Gastrointestinal: normoactive bowel sounds, no tenderness, no distended Integumentary: no rash, warm and dry Neurologic: no focal deficit, no asterixis, alert and oriented x3, CN 3-12 intact Musculoskeletal: other (no edema) Psychiatric: mood/affect appropriate, cooperative - Lab 12/17/17 06:41 12/18/17 05:10 Most recent lab results Calcium 8.9 mg/dL (8.4-10.2) 12/18/17 05:10
--- NOTE | 2017-12-18 09:09 | Discharge Summary ---
Providers - Providers Date of Admission: 12/16/17 01:02 Date of discharge: 12/18/17 Attending physician: DARA MAGALLON 12/17/17 10:37 Consult to Physician [CONS] Routine Comment: Consulting Provider: DAVE HALL Physician Instructions: Reason For Exam: acute on chronic kidney disease Primary care physician: MAKING MACHINE OPERATOR Hospitalization Condition: Fair Exam - Constitutional Vitals: Temp Pulse Resp BP Pulse Ox 98.9 F 76 16 116/72 97 12/17/17 19:51 12/18/17 07:09 12/17/17 22:00 12/18/17 07:09 12/17/17 19:51 Plan Activity: no restrictions Diet: renal Additional Instructions: 1.Follow up with [facility] in 1 week. 2.Follow up with Dr. Hall, Nephrology in 1 week Follow up with: PRIMARY CARE, [Primary Care Provider] - 3-5 Days Prescriptions: amLODIPine [Norvasc] 5 mg PO QDAY #30 tablet
== END 2017-12-18 10:30 | disposition home or self-care (01) | DRG 871 ==
LOC: ED 20:52 → 4A 12-16 01:02 → 3A 12-16 10:36
PROVIDERS: ADMIT Internal Medicine; ATTEND Internal Medicine
DX: A41.9 Sepsis, unspecified organism (principal); N17.0 Acute kidney failure with tubular necrosis; E87.1 Hypo-osmolality and hyponatremia; I12.9 Hypertensive chronic kidney disease with stage 1 through stage 4 chronic kidney disease, or unspecified chronic kidney disease; N18.9 Chronic kidney disease, unspecified; E86.0 Dehydration; K21.9 Gastro-esophageal reflux disease without esophagitis; E11.43 Type 2 diabetes mellitus with diabetic autonomic (poly)neuropathy; K31.84 Gastroparesis; Z90.49 Acquired absence of other specified parts of digestive tract; Z79.4 Long term (current) use of insulin; Z82.49 Family history of ischemic heart disease and other diseases of the circulatory system; Z83.3 Family history of diabetes mellitus
CPT/HCPCS: 36415; 74176; 80048; 80053; 81001; 82805; 82962; 83690; 85025; 85027; J0360; J0696; J1815; J2270; J2405; J3010; J7030

== ENCOUNTER 2018-01-20 20:05 | Emergency (ER) | payer SELFPAY ==
[2018-01-20 21:35] LABS: Basophils # (Auto) 0.1 K/mm3 (0.0-0.1); Basophils % (Auto) 0.8 % (0.0-1.8); Eosinophils % (Auto) 0.3 % (0.0-4.3); Lymphocytes # (Auto) 1.1 K/mm3 (1.2-5.4); Lymphocytes % (Auto) 8.4 % (13.4-35.0); Mean Corpuscular HGB Conc 33 % (32-34); Mean Corpuscular Hemoglobin 30 pg (28-32); Mean Corpuscular Volume 89 fl (84-94); Monocytes # (Auto) 0.5 K/mm3 (0.0-0.8); Monocytes % (Auto) 3.7 % (0.0-7.3); Platelet Count 211 K/mm3 (140-440)
[2018-01-20 21:46] LABS: Albumin 4.6 g/dL (3.9-5); Calcium 10.4 mg/dL (8.4-10.2)
[2018-01-20 23:11] LABS: Bilirubin,Urine NEG (Negative); Blood,Urine SM (Negative); Color,Urine Yellow (Yellow); Mucus,Urine FEW /HPF; Urobilinogen,Urine < 2.0 mg/dL (<2.0)
[2018-01-20 23:12] LABS: Protein,Urine >500 mg/dL (Negative)
[2018-01-21] MEDS ORDERED: NACL 0.9% 1000 ML 1,000 ML IV ONE ×2 (00:46→01:20)
[2018-01-21] MEDS ORDERED: SUBLIMAZE IV ONE (00:56)
[2018-01-21] MEDS ORDERED: HumuLIN R IV ONE (00:56)
[2018-01-21] MEDS ORDERED: ZOFRAN IV ONE (00:56)
[2018-01-21] MEDS ORDERED: NORMODYNE IV ONE ×2 (00:57→02:18)
--- NOTE | 2018-01-21 01:20 | Emergency Department Report ---
HPI - General Chief Complaint: Abdominal Pain Time Seen by Provider: 01/21/18 00:01 - HPI HPI: The patient is a 42-year-old male with a significant history of diabetes and gastritis, presents for evaluation of abdominal pain. The patient reports abdominal pain since approximately 9 or 10 AM this morning, greater than 12 hours prior to my evaluation. He states that his abdominal pain has been 10/10 in severity, epigastric in location, burning and sharp in quality, and exacerbated with eating. He says his pain is consistent with previous episodes of gastritis. The patient denies fever, chills, night sweats, chest pain, dyspnea, hematemesis, diarrhea, blood in the stool, dark tarry stool, dysuria, hematuria, flank pain, genital discharge, inability to pass flatus. ED Past Medical Hx - Past Medical History Hx Hypertension: Yes Hx Congestive Heart Failure: No Hx Diabetes: Yes Hx GERD: Yes Hx Renal Disease: Yes Hx Asthma: No Hx COPD: No Hx HIV: No Additional medical history: Gastroparesis - Surgical History Hx Cholecystectomy: Yes Additional Surgical History: right foot - Social History Smoking Status: Never Smoker Substance Use Type: None - Medications Home Medications: Home Medications Medication Instructions Recorded Confirmed Last Taken Type Insulin NPH Hum/Reg Insulin Hm 10 units SQ BID #1 vial 07/24/14 12/16/17 Rx [NovoLIN 70-30 100 Unit/ml Vial] HYDROcodone/ACETAMINOPHEN [[place] 1 each PO Q8H PRN #10 tablet 10/27/17 12/16/17 Unknown Rx 5-325 Tablet] Ciprofloxacin HCl [Ciprofloxacin 500 mg PO Q12H #10 tab 12/18/17 Unknown Rx TAB] Promethazine [Phenergan TAB] 25 mg PO Q6HR PRN #20 tab 12/18/17 Unknown Rx amLODIPine [Norvasc] 5 mg PO QDAY #30 tablet 12/18/17 Unknown Rx ED Review of Systems ROS: Stated complaint: ABD PAIN Other details as noted in HPI Constitutional: denies: fever ENT: denies: throat or neck pain Respiratory: denies: cough, shortness of breath Cardiovascular: denies: chest pain Endocrine: denies unexplained weight loss or gain Gastrointestinal: reports abdominal pain, nausea, vomiting Genitourinary: denies: dysuria Musculoskeletal: denies: leg swelling Skin: denies: rash Neurological: denies: headache Hematological/Lymphatic: denies: easy bleeding or easy bruising Psych: denies sadness or hopelessness Physical Exam - Physical Exam Vital Signs: Vital Signs 01/20/18 21:09 Temperature 99.9 F H Pulse Rate 113 H Respiratory 20 Rate Blood Pressure 174/112 O2 Sat by Pulse 99 Oximetry Physical Exam: General: well-nourished, well-developed, no acute distress Head: Normocephalic, atraumatic Eyes: normal sclera ENT: Mucous membranes are pale and dry Neck: No neck stiffness, no cervical adenopathy Respiratory: Breath sounds equal bilaterally, no wheezing, rales, or rhonchi Cardio: S1 and S2 present, no murmurs, rubs, gallops, capillary refill is delayed Abdomen: Normoactive bowel sounds, soft abdomen, epigastric tenderness to palpation present, no rigidity, no guarding or rebound tenderness Musc: No pitting edema Skin: No rash Neuro: no facial drooping, normal speech Psych: Normal affect ED Course Vital Signs 01/20/18 21:09 Temperature 99.9 F H Pulse Rate 113 H Respiratory 20 Rate Blood Pressure 174/112 O2 Sat by Pulse 99 Oximetry ED Medical Decision Making - Lab Data Result diagrams: 01/20/18 21:19 01/20/18 21:19 - Medical Decision Making The patient was seen and examined by myself. The patient is placed on a environmental monitoring technician and continuous pulse ox. On initial evaluation, the patient was found to be in no distress. Evaluation orders are placed. IV access is established and the patient is given a normal saline fluid bolus for treatment of his dehydration and tachycardia, and Zofran for nausea, and IV analgesic for pain, and IV labetalol for elevated blood pressure. Lab results revealed significantly elevated glucose of 385, with normal anion gap and bicarbonate, not consistent with DKA. Labs otherwise exhibited elevated creatinine 1.8, at patient baseline on previous admission. The patient is given IV insulin for treatment of hyperglycemia. The patient was reevaluated and reported that their symptoms were markedly improved. The patient's found to have resolution of hypertension, blood pressure now 108/69, HR 95, and glucose down trended to 200. The patient is stable for discharge with outpatient follow-up. The patient is given follow-up and return instructions. The patient expressed understanding and agreed with the plan. The patient is discharged in stable condition. Critical care attestation.: If time is entered above; I have spent that time in minutes in the direct care of this critically ill patient, excluding procedure time. ED Disposition Clinical Impression: Abdominal pain, acute, epigastric, Dehydration, Nausea and vomiting in adult patient, Acute hyperglycemia, Hypertensive urgency Disposition: TO HOME OR SELFCARE Is pt being admited?: No Does the pt Need Aspirin: No Condition: Stable Instructions: Hypertension (ED), Diabetic Hyperglycemia (ED), Gastritis (ED), Diet for Ulcers and Gastritis (ED) Referrals: PRIMARY CARE, [Primary Care Provider] - 3-5 Days [facility] [place] [Outside] - 3-5 Days Time of Disposition: 01:28
[2018-01-21 03:36] VITALS: BP 113/46
== END 2018-01-21 03:37 | disposition home or self-care (01) ==
LOC: ED 20:05
DX: E11.65 Type 2 diabetes mellitus with hyperglycemia (principal); I16.0 Hypertensive urgency; I10 Essential (primary) hypertension; R10.13 Epigastric pain; E86.0 Dehydration; K21.9 Gastro-esophageal reflux disease without esophagitis; Z79.4 Long term (current) use of insulin
CPT/HCPCS: 36415; 80053; 81001; 82805; 82962; 83690; 85025; 96361; 96374; 96375; 99284; J2405; J3010; J7030; J1815

== ENCOUNTER 2018-03-02 22:21 | Emergency (ER) | payer SELFPAY ==
[2018-03-02 23:06] LABS: Basophils # (Auto) 0.1 K/mm3 (0.0-0.1); Basophils % (Auto) 0.7 % (0.0-1.8); Hematocrit 36.6 % (35.5-45.6); Hemoglobin 12.3 gm/dl (11.8-15.2); Lymphocytes # (Auto) 1.3 K/mm3 (1.2-5.4); Lymphocytes % (Auto) 7.2 % (13.4-35.0); Mean Corpuscular HGB Conc 34 % (32-34); Mean Corpuscular Hemoglobin 30 pg (28-32); Mean Corpuscular Volume 90 fl (84-94); Monocytes # (Auto) 1.2 K/mm3 (0.0-0.8); Monocytes % (Auto) 6.6 % (0.0-7.3); Platelet Count 224 K/mm3 (140-440); Red Blood Count 4.08 M/mm3 (3.65-5.03)
[2018-03-02 23:16] LABS: INR 0.89 (0.87-1.13)
[2018-03-02] MEDS ORDERED: ZOFRAN IV ONE (23:28)
[2018-03-02] MEDS ORDERED: NACL 0.9% 1000 ML 2,000 ML IV ONE (23:28)
[2018-03-02] MEDS ORDERED: HALDOL IM STA (23:29)
--- NOTE | 2018-03-02 23:29 | Emergency Department Report ---
<MITCHELL LIND - Last Filed: 03/03/18 05:58> ED General Adult HPI - General Chief complaint: Chest Pain Stated complaint: CHEST PAIN Time Seen by Provider: 03/02/18 23:06 - Related Data Previous Rx's Medication Instructions Recorded Last Taken Type Insulin NPH Hum/Reg Insulin Hm 10 units SQ BID #1 vial 07/24/14 07/08/16 Rx [NovoLIN 70-30 100 Unit/ml Vial] HYDROcodone/ACETAMINOPHEN [[place] 1 each PO Q8H PRN #10 tablet 10/27/17 Unknown Rx 5-325 Tablet] Ciprofloxacin HCl [Ciprofloxacin 500 mg PO Q12H #10 tab 12/18/17 Unknown Rx TAB] Promethazine [Phenergan TAB] 25 mg PO Q6HR PRN #20 tab 12/18/17 Unknown Rx amLODIPine [Norvasc] 5 mg PO QDAY #30 tablet 12/18/17 Unknown Rx Hydrochlorothiazide [HCTZ] 25 mg PO QDAY #30 tablet 01/21/18 Unknown Rx traMADol [Ultram 50 MG tab] 50 mg PO Q6HR PRN #15 tablet 01/21/18 Unknown Rx Acetaminophen [Tylenol Arthritis] 650 mg PO Q6HR PRN #30 tablet.er 03/03/18 Unknown Rx Famotidine [Pepcid] 20 mg PO BID #60 tablet 03/03/18 Unknown Rx Metoclopramide [Reglan] 10 mg PO QID PRN #30 tab 03/03/18 Unknown Rx Promethazine [Phenergan SUPPOS] 50 mg IN Q6H PRN #20 supp.rect 03/03/18 Unknown Rx Allergies Allergy/AdvReac Type Severity Reaction Status Date / Time No Known Allergies Allergy Verified 12/11/15 07:34 ED Review of Systems ROS: Stated complaint: CHEST PAIN Other details as noted in HPI ED Past Medical Hx - Medications Home Medications: Home Medications Medication Instructions Recorded Confirmed Last Taken Type Insulin NPH Hum/Reg Insulin Hm 10 units SQ BID #1 vial 07/24/14 12/16/17 Rx [NovoLIN 70-30 100 Unit/ml Vial] HYDROcodone/ACETAMINOPHEN [[place] 1 each PO Q8H PRN #10 tablet 18 12/16/17 Unknown Rx 5-325 Tablet] Ciprofloxacin HCl [Ciprofloxacin 500 mg PO Q12H #10 tab 12/18/17 Unknown Rx TAB] Promethazine [Phenergan TAB] 25 mg PO Q6HR PRN #20 tab 12/18/17 Unknown Rx amLODIPine [Norvasc] 5 mg PO QDAY #30 tablet 12/18/17 Unknown Rx Hydrochlorothiazide [HCTZ] 25 mg PO QDAY #30 tablet 01/21/18 Unknown Rx traMADol [Ultram 50 MG tab] 50 mg PO Q6HR PRN #15 tablet 01/21/18 Unknown Rx Acetaminophen [Tylenol Arthritis] 650 mg PO Q6HR PRN #30 tablet.er 03/03/18 Unknown Rx Famotidine [Pepcid] 20 mg PO BID #60 tablet 03/03/18 Unknown Rx Metoclopramide [Reglan] 10 mg PO QID PRN #30 tab 03/03/18 Unknown Rx Promethazine [Phenergan SUPPOS] 50 mg IN Q6H PRN #20 supp.rect 03/03/18 Unknown Rx ED Course Vital Signs 03/02/18 03/02/18 03/02/18 22:34 22:35 23:00 Temperature 98.8 F Pulse Rate 106 H 107 H 110 H Respiratory 12 18 25 H Rate Blood Pressure 142/101 Blood Pressure 170/105 [Left] O2 Sat by Pulse 98 100 100 Oximetry 03/02/18 03/03/18 03/03/18 23:33 01:14 01:30 Temperature Pulse Rate 122 H 94 H 88 Respiratory 19 14 16 Rate Blood Pressure 142/101 111/66 83/45 Blood Pressure [Left] O2 Sat by Pulse 99 97 98 Oximetry 03/03/18 03/03/18 03/03/18 01:59 02:00 02:16 Temperature Pulse Rate 85 81 Respiratory 13 12 Rate Blood Pressure 99/61 108/64 Blood Pressure 90/60 [Left] O2 Sat by Pulse 97 100 Oximetry 03/03/18 03/03/18 03/03/18 02:30 02:46 03:00 Temperature Pulse Rate 76 76 85 Respiratory 14 15 14 Rate Blood Pressure 100/60 110/62 116/68 Blood Pressure [Left] O2 Sat by Pulse 98 98 98 Oximetry 03/03/18 03/03/18 03/03/18 03:16 03:30 06:15 Temperature 98.2 F Pulse Rate 81 78 96 H Respiratory 14 13 18 Rate Blood Pressure 128/83 112/69 Blood Pressure 145/92 [Left] O2 Sat by Pulse 100 99 97 Oximetry ED Medical Decision Making - Lab Data Result diagrams: 03/02/18 22:56 03/02/18 22:56 - Medical Decision Making pt did not wipe penis prior to sample Ua with only 7 wbc but neg nitrates, bacteria, and leukocytes therefore unlikely a uti Critical care attestation.: If time is entered above; I have spent that time in minutes in the direct care of this critically ill patient, excluding procedure time. ED Disposition Clinical Impression: Abdominal pain, Chest pain, Vomiting, Gastroparesis Disposition: - TO HOME OR SELFCARE Condition: Stable Instructions: Chest Pain (ED) Additional Instructions: Discontinue consumption of tobacco, marijuana, cannabis. Avoid consumption of heavy, spicy foods, Motrin, Naprosyn, ibuprofen, Aleve. Follow up with any of the listed cardiology groups within the next 3-5 days. Follow up with either her primary care doctor or the listed gastroenterology group within the next 2- 3 weeks. Take the pain medication, nausea medications as needed/directed. Return to the ER right away with new pain, worsened pain, migration of pain, fevers, chills, lethargy, irritability, productive vomit, change in mental status, confusion, inability to tolerate liquid feeds. Prescriptions: Acetaminophen [Tylenol Arthritis] 650 mg PO Q6HR PRN #30 tablet.er PRN Reason: Pain Famotidine [Pepcid] 20 mg PO BID #60 tablet Metoclopramide [Reglan] 10 mg PO QID PRN #30 tab PRN Reason: Nausea Promethazine [Phenergan SUPPOS] 50 mg IN Q6H PRN #20 supp.rect PRN Reason: Nausea Referrals: PRIMARY CARE, [Primary Care Provider] - 3-5 Days CADENCE KUNZ MD [Staff Physician] - 3-5 Days [facility] [Provider Group] - 3-5 Days [facility] [Provider Group] - 3-5 Days [facility] [Provider Group] - 3-5 Days <DARA GLOVER - Last Filed: 03/04/18 05:48> ED General Adult HPI - General Source: patient, EMS (ems notes not available at time of chart dictation), RN notes reviewed, old records reviewed Mode of arrival: Ambulatory Limitations: No Limitations - History of Present Illness Initial comments: This is a 42-year-old male whom I have evaluated in the past. His past medical history includes diabetes, hypertension, renal insufficiency. Patient also has a history of erosive esophagitis, gastritis, and also admits to intermittent cannabis consumption. He presents to the ER with a concomitant complaint of anterior chest wall pain, diffuse abdominal pain, nausea and vomiting, difficulty tolerating liquid feeds. His pain has been intermittent, present for a few days, increases when he eats he vomits, and decreases with rest. He denies DVT, pulmonary embolus risk factors. The chest pain does not radiate to the back, arms or neck. He denies lower abdominal pain, testicular pain, urinary symptoms. He also endorses that his pain and symptoms improved when he takes a hot shower or bath. -: Gradual Location: chest, abdomen Severity scale (0 -10): 8 Quality: burning, aching Consistency: intermittent Improves with: rest, other (taking a hot bath) Worsens with: eating, other (vomiting) Associated Symptoms: chest pain, loss of appetite, malaise, nausea/vomiting, weakness. denies: shortness of breath, syncope ED Review of Systems Constitutional: malaise. denies: diaphoresis, fever Eyes: denies: eye discharge ENT: denies: epistaxis Respiratory: denies: cough Cardiovascular: chest pain Gastrointestinal: abdominal pain, nausea, vomiting Genitourinary: denies: urgency, dysuria, testicular pain Neurological: weakness Psychiatric: anxiety ED Past Medical Hx - Past Medical History Previous Medical History?: Yes Hx Hypertension: Yes (noncompliant) Hx Congestive Heart Failure: No Hx Diabetes: Yes Hx GERD: Yes Hx Renal Disease: Yes Hx Asthma: No Hx COPD: No Hx HIV: No Additional medical history: Gastroparesis - Surgical History Past Surgical History?: Yes Hx Cholecystectomy: Yes Additional Surgical History: right foot - Social History Smoking Status: Never Smoker Substance Use Type: Marijuana ED Physical Exam - General Limitations: No Limitations General appearance: alert, in no apparent distress - Head Head exam: Present: atraumatic, normocephalic - Eye Eye exam: Present: normal appearance, EOMI. Absent: nystagmus - ENT ENT exam: Present: normal exam, normal orophraynx, mucous membranes moist, normal external ear exam - Neck Neck exam: Present: normal inspection, full ROM. Absent: tenderness, meningismus - Respiratory Respiratory exam: Present: normal lung sounds bilaterally. Absent: respiratory distress - Cardiovascular Cardiovascular Exam: Present: normal rhythm, tachycardia, normal heart sounds. Absent: systolic murmur, diastolic murmur, rubs, gallop - GI/Abdominal GI/Abdominal exam: Present: soft, tenderness (there is epigastric tenderness. There is no rebound, guarding or peritoneal signs.), normal bowel sounds. Absent: distended, guarding, rebound, rigid, pulsatile mass - Rectal Rectal exam: Present: deferred - Extremities Exam Extremities exam: Present: normal inspection, full ROM, other (2+ pulses noted in the bilateral upper, lower extremities. Compartments soft. No long bony tenderness. The pelvis is stable.). Absent: tenderness, pedal edema, joint swelling, calf tenderness (there is no palpable cord. This is a negative Homans sign.) - Back Exam Back exam: Present: normal inspection, full ROM. Absent: tenderness, CVA tenderness (R), paraspinal tenderness, vertebral tenderness - Neurological Exam Neurological exam: Present: alert, oriented X3, CN II-XII intact, normal gait, other (Extraocular movements intact. Tongue midline. No facial droop. Facial sensation intact to light touch in the V1, V2, V3 distribution bilaterally. 5 and 5 strength in 4 extremities.. Sensation is intact to light touch in 4 extremities.). Absent: motor sensory deficit - Psychiatric Psychiatric exam: Present: anxious - Skin Skin exam: Present: warm, dry, intact, normal color. Absent: rash ED Course - Reevaluation(s) Reevaluation #1: 03/03/18 01:45 Differential diagnosis, including but not limited to: Gastroparesis, cannabinoid hyperemesis syndrome, dehydration, enteritis, GERD, gastritis, acute coronary syndrome, pancreatitis Assessment and plan: 42-year-old male, reported cannabis use, known diabetic, with typical constellation of epigastric pain, chest pain, abdominal pain. Patient has already had discopathy proven diagnoses of erosive gastritis in the past. His leukocytosis and tachycardia are appreciated, tachycardia is likely secondary to dehydration and abdominal pain, leukocytosis is likely secondary to the aforementioned, and is also likely a stress demargination. I highly favor gastroparesis with possible superimposed cannabinoid hyperemesis syndrome, likely exacerbated by his chronic cannabis consumption. He is not had active vomiting in the ER, he is given IV fluids, Haldol for nausea, and hydromorphone for pain. He is currently sleeping, his tachycardia has resolved , then noncontrast CT scan of the abdomen and pelvis was unremarkable, laboratory studies not consistent with diabetic ketoacidosis, he was given IV fluids, IV insulin, and repeat laboratory studies are pending. Based on the clinical history I find the patient to be low risk by well's criteria, and do not feel like he requires further evaluation for pulmonary embolus based on the clinical history. As far as acute coronary syndrome goes, we will check 2 troponins, 2 EKGs, based on the history, patient is low risk by the LIVE score, heart score. 03/03/18 01:45 Reevaluation #2: 03/03/18 01:54 Care will be transferred to the overnight physician, Dr. Lind to follow up on repeat troponin, urinalysis, repeat EKG, and final set of vital signs, as well as repeat Accu-Chek. Plan to discharge if normalized. Patient is a chronic diabetic, therefore his hyperglycemia is a manifestation of an underlying chronic medical condition, I would consider him stable for discharge with a glucose of 300 or less, as this is a chronic problem which the patient poorly manages. - EJ/Peripheral Line Neck L Time Out Performed: Yes Indications: nurses unable to establis Skin Cleansed in Sterile Fashion: Yes Size: 20 Dressing Placed: Tegaderm Patient Tolerated Procedure: well Neck R Time Out Performed: Yes Indications: nurses unable to establis Skin Cleansed in Sterile Fashion: Yes Size: 20 Dressing Placed: Tegaderm Patient Tolerated Procedure: other Additional Comments: IV initially worked well, flushed well without difficulty. However infiltrated shortly, and was subsequently removed. Had warm compresses applied to the area. ED Medical Decision Making - Lab Data Result diagrams: 03/02/18 22:56 03/02/18 22:56 - EKG Data -: EKG Interpreted by Me EKG shows normal: sinus rhythm, axis, intervals, QRS complexes, ST-T waves - EKG Data Interpretation: unchanged when compared t (09 july 2016) - Radiology Data Radiology results: report reviewed, image reviewed X-ray the chest is negative. Print Report Referring Physician: DARA GLOVER Patient Name: RAJAN ANDERSON Date of : 1975 Sex: Male Report Date: 2018-03-03 Report Status: Finalized Findings [facility] [address] [place] [address] Cat Scan Report Signed Patient: RAJAN ANDERSON MR#: [id number] : 1975 Acct:[id number] Age/Sex: 42 / M ADM Date: 03/02/18 Loc: ED Attending Dr: Ordering Physician: DARA GLOVER MD Date of Service: 03/03/18 Procedure(s): CT abdomen pelvis wo con Accession Number(s): [id number] cc: DARA GLOVER MD FINAL REPORT PROCEDURE: CT ABDOMEN PELVIS WO CON TECHNIQUE: Computerized axial tomography of the abdomen and pelvis was performed without intravenous contrast. This study is performed without intravascular contrast material and its sensitivity for abdominal and pelvic pathology, including neoplasms, inflammation, abscess, free fluid, thrombosis, arterial dissection and infarction, is reduced compared with a contrast enhanced study. HISTORY: abd pain n/v COMPARISON: No prior studies are available for comparison. FINDINGS: Lower Lung joes: There is minimal dependent atelectasis. Lung bases otherwise are clear. Upper Abdomen: Gallbladder is surgically absent. The unenhanced images the liver are unremarkable. The adrenal glands show no abnormalities. The pancreas and the spleen are unremarkable. Kidneys, Ureters and Urinary bladder: There is a nonobstructing 2 millimeter calculus midportion right kidney. Nonobstructing 2.5 millimeter calculus visualize lower 3rd right kidney. Kidneys and ureters otherwise are unremarkable. There is no hydronephrosis. No ureteral calculi are seen. Urinary bladder is unremarkable. Retroperitoneum: Atherosclerotic changes are seen in the abdominal aorta. No aneurysm is visualized. Nonspecific subcentimeter lymph nodes are seen in the retroperitoneum. No pathologically enlarged lymph nodes are identified. Bowel: There are few loops of small bowel seen in the left upper quadrant which are mildly fluid distended and show mild prominence of the mucosal folds. I cannot exclude a mild nonspecific enteritis. I do not see evidence of bowel obstruction, ascites or free intraperitoneal gas. Normal-appearing appendix is seen in the right lower quadrant. Reproductive organs: Prostate gland does not appear to be significantly enlarged. Other: No acute bony abnormalities are identified. IMPRESSION: Small nonobstructing calculi right kidney. Mildly prominent loops of small bowel seen left upper quadrant as described. These appear to be mildly fluid distended and show mild prominence of the mucosal folds. I cannot exclude a mild nonspecific enteritis. Bowel loops otherwise are unremarkable. Prior cholecystectomy. No other abnormalities are seen.. Transcribed By: LEIGH Dictated By: SHAHRAM COATES MD Electronically Authenticated By: SHAHRAM COATES MD Signed Date/Time: 03/03/1850 DD/ ED Disposition Is pt being admited?: No Does the pt Need Aspirin: No
[2018-03-02 23:30] LABS: BUN/Creatinine Ratio 14; Blood Urea Nitrogen 30 mg/dL (9-20); Calcium 9.9 mg/dL (8.4-10.2); Hemolysis Index 3
[2018-03-03] MEDS ORDERED: HumuLIN R IV ONE (00:04)
--- NOTE | 2018-03-03 00:04 | XRay Report ---
FINAL REPORT PROCEDURE: Chest. TECHNIQUE: PA and lateral views. HISTORY: Chest pain. COMPARISON: No prior studies are available for comparison. FINDINGS: The heart and mediastinum appear normal. There is faint calcification in the aortic arch. The lungs are clear and well expanded. There are no pleural effusions. The soft tissues and regional skeleton are unremarkable. There is an azygos fissure noted at the right lung apex. IMPRESSION: No evidence of acute disease.
[2018-03-03] MEDS ORDERED: MAGNESIUM SULFATE 2GM/50ML 2 GM/50 ML BAG IV ONE (00:28)
[2018-03-03] MEDS ORDERED: MAG-OX PO STA (00:28)
[2018-03-03] MEDS ORDERED: DILAUDID ONE (00:53)
[2018-03-03] MEDS ORDERED: DILAUDID IV ONE (00:55)
--- NOTE | 2018-03-03 00:57 | Cat Scan Report ---
FINAL REPORT PROCEDURE: CT ABDOMEN PELVIS WO CON TECHNIQUE: Computerized axial tomography of the abdomen and pelvis was performed without intravenous contrast. This study is performed without intravascular contrast material and its sensitivity for abdominal and pelvic pathology, including neoplasms, inflammation, abscess, free fluid, thrombosis, arterial dissection and infarction, is reduced compared with a contrast enhanced study. HISTORY: abd pain n/v COMPARISON: No prior studies are available for comparison. FINDINGS: Lower Lung jose: There is minimal dependent atelectasis. Lung bases otherwise are clear. Upper Abdomen: Gallbladder is surgically absent. The unenhanced images the liver are unremarkable. The adrenal glands show no abnormalities. The pancreas and the spleen are unremarkable. Kidneys, Ureters and Urinary bladder: There is a nonobstructing 2 millimeter calculus midportion right kidney. Nonobstructing 2.5 millimeter calculus visualize lower 3rd right kidney. Kidneys and ureters otherwise are unremarkable. There is no hydronephrosis. No ureteral calculi are seen. Urinary bladder is unremarkable. Retroperitoneum: Atherosclerotic changes are seen in the abdominal aorta. No aneurysm is visualized. Nonspecific subcentimeter lymph nodes are seen in the retroperitoneum. No pathologically enlarged lymph nodes are identified. Bowel: There are few loops of small bowel seen in the left upper quadrant which are mildly fluid distended and show mild prominence of the mucosal folds. I cannot exclude a mild nonspecific enteritis. I do not see evidence of bowel obstruction, ascites or free intraperitoneal gas. Normal-appearing appendix is seen in the right lower quadrant. Reproductive organs: Prostate gland does not appear to be significantly enlarged. Other: No acute bony abnormalities are identified. IMPRESSION: Small nonobstructing calculi right kidney. Mildly prominent loops of small bowel seen left upper quadrant as described. These appear to be mildly fluid distended and show mild prominence of the mucosal folds. I cannot exclude a mild nonspecific enteritis. Bowel loops otherwise are unremarkable. Prior cholecystectomy. No other abnormalities are seen..
[2018-03-03 04:58] LABS: Bilirubin,Urine NEG (Negative); Blood,Urine MOD (Negative); Color,Urine Yellow (Yellow); Hyaline Casts,Urine 1 /LPF; Mucus,Urine FEW /HPF; Urobilinogen,Urine < 2.0 mg/dL (<2.0)
[2018-03-03 05:16] LABS: Amphetamine Screen,Urine PRESUMPTIVE NEGATIVE; Benzodiazepines Screen,Urine PRESUMPTIVE NEGATIVE; Cocaine Screen,Urine PRESUMPTIVE NEGATIVE; Methadone Screen,Urine PRESUMPTIVE NEGATIVE; Opiate Screen,Urine PRESUMPTIVE NEGATIVE
[2018-03-03 05:58] LABS: Cannabinoid Screen,Urine PRESUMPTIVE POSITIVE
[2018-03-03 06:23] VITALS: BP 145/92
== END 2018-03-03 06:17 | disposition home or self-care (01) ==
LOC: ED 22:21
DX: E11.43 Type 2 diabetes mellitus with diabetic autonomic (poly)neuropathy (principal); R07.89 Other chest pain; F12.10 Cannabis abuse, uncomplicated; E11.65 Type 2 diabetes mellitus with hyperglycemia; K31.84 Gastroparesis; I12.9 Hypertensive chronic kidney disease with stage 1 through stage 4 chronic kidney disease, or unspecified chronic kidney disease; E11.22 Type 2 diabetes mellitus with diabetic chronic kidney disease; N18.9 Chronic kidney disease, unspecified; K21.9 Gastro-esophageal reflux disease without esophagitis; Z90.49 Acquired absence of other specified parts of digestive tract; Z79.4 Long term (current) use of insulin
CPT/HCPCS: 36415; 36569; 71046; 74176; 80048; 80307; 81001; 82805; 82962; 83690; 83735; 84484; 85025; 85610; 93005; 93010; 96365; 96367; 96372; 96375; 99285; J1170; J1630; J3475; J7030; 96361; J1815

== ENCOUNTER 2018-04-19 06:17 | Emergency (ER) | payer SELFPAY ==
[2018-04-19] MEDS ORDERED: ZOFRAN ODT PO ONE (06:23)
[2018-04-19] MEDS ORDERED: DILAUDID IV ONE (09:52)
[2018-04-19] MEDS ORDERED: BENADRYL IV ONE (09:52)
[2018-04-19] MEDS ORDERED: NORMODYNE IV ONE (09:53)
[2018-04-19] MEDS ORDERED: ZOFRAN ONE (10:06)
[2018-04-19 10:10] LABS: Basophils # (Auto) 0.1 K/mm3 (0.0-0.1); Basophils % (Auto) 0.7 % (0.0-1.8); Hematocrit 36.1 % (35.5-45.6); Hemoglobin 12.1 gm/dl (11.8-15.2); Lymphocytes # (Auto) 0.9 K/mm3 (1.2-5.4); Lymphocytes % (Auto) 10.2 % (13.4-35.0); Mean Corpuscular HGB Conc 34 % (32-34); Mean Corpuscular Hemoglobin 31 pg (28-32); Mean Corpuscular Volume 92 fl (84-94); Monocytes # (Auto) 0.3 K/mm3 (0.0-0.8); Monocytes % (Auto) 3.3 % (0.0-7.3); Platelet Count 204 K/mm3 (140-440); Red Blood Count 3.94 M/mm3 (3.65-5.03); Red Cell Distribution Width 14.7 % (13.2-15.2)
[2018-04-19 10:24] LABS: Creatine Kinase MB 1.8 ng/mL (0.0-4.0)
[2018-04-19 10:25] LABS: INR 0.98 (0.87-1.13)
[2018-04-19 10:26] LABS: Partial Thromboplastin Time 24.3 Sec. (24.2-36.6)
[2018-04-19 10:28] LABS: Calcium 9.8 mg/dL (8.4-10.2)
[2018-04-19 10:29] LABS: Alanine Aminotransferase 12 units/L (7-56); Albumin 4.5 g/dL (3.9-5)
[2018-04-19] MEDS ORDERED: NACL 0.9% 500 ML 500 ML IV ONE (10:30)
[2018-04-19] MEDS ORDERED: HALDOL IM ONE (10:30)
[2018-04-19] MEDS ORDERED: PEPCID IV ONE (10:30)
[2018-04-19] MEDS ORDERED: CARAFATE PO ONE (10:30)
[2018-04-19 10:31] LABS: Bilirubin,Direct < 0.2 mg/dL (0-0.2)
--- NOTE | 2018-04-19 11:37 | Emergency Department Report ---
ED General Adult HPI - General Chief complaint: Abdominal Pain Stated complaint: ABDOMINAL PAIN,VOMITING Time Seen by Provider: 04/19/18 10:11 Source: patient, RN notes reviewed, old records reviewed Mode of arrival: Ambulatory Limitations: No Limitations - History of Present Illness Initial comments: This is a 42-year-old gentleman whom I have evaluated in the past. Past history includes endoscopically confirms gastritis/esophagitis, diabetes, hypertension, renal insufficiency. He presents to the ER with his typical constellation of symptoms, including abdominal discomfort, nausea and vomiting and generalized weakness. These symptoms have been going on for the past 24 hours. He endorses 10 episodes of clear, nonbloody, nonbilious emesis. He endorses 3-4 episodes of watery brown diarrhea. He denies chest pain, lower abdominal pain, testicular pain, irritative, obstructive urinary symptoms. In the emergency room, he was treated with Haldol, Pepcid, Carafate, which improved his symptoms. -: Gradual Location: abdomen Radiation: non-radiation Severity scale (0 -10): 0 Quality: aching Consistency: now resolved Improves with: medication Worsens with: eating Associated Symptoms: loss of appetite, malaise, nausea/vomiting. denies: confusion, chest pain, cough, diaphoresis, fever/chills, headaches, rash, seizure, shortness of breath, syncope - Related Data Previous Rx's Medication Instructions Recorded Last Taken Type Insulin NPH Hum/Reg Insulin Hm 10 units SQ BID #1 vial 07/24/14 07/08/16 Rx [NovoLIN 70-30 100 Unit/ml Vial] HYDROcodone/ACETAMINOPHEN [[place] 1 each PO Q8H PRN #10 tablet 10/27/17 Unknown Rx 5-325 Tablet] Ciprofloxacin HCl [Ciprofloxacin 500 mg PO Q12H #10 tab 12/18/17 Unknown Rx TAB] Promethazine [Phenergan TAB] 25 mg PO Q6HR PRN #20 tab 12/18/17 Unknown Rx amLODIPine [Norvasc] 5 mg PO QDAY #30 tablet 12/18/17 Unknown Rx hydroCHLOROthiazide [HCTZ] 25 mg PO QDAY #30 tablet 01/21/18 Unknown Rx traMADol [Ultram 50 MG tab] 50 mg PO Q6HR PRN #15 tablet 01/21/18 Unknown Rx Acetaminophen [Tylenol Arthritis] 650 mg PO Q6HR PRN #30 tablet.er 04/19/18 Unknown Rx Famotidine [Pepcid] 20 mg PO BID #60 tablet 04/19/18 Unknown Rx Metoclopramide [Reglan TAB] 10 mg PO QID PRN #30 tab 04/19/18 Unknown Rx Promethazine [Phenergan SUPPOS] 50 mg [place] Q6H PRN #20 supp.rect 04/19/18 Unknown Rx Allergies Allergy/AdvReac Type Severity Reaction Status Date / Time No Known Allergies Allergy Verified 12/11/15 07:34 ED Review of Systems ROS: Stated complaint: ABDOMINAL PAIN,VOMITING Other details as noted in HPI Constitutional: malaise Eyes: denies: eye discharge ENT: denies: epistaxis Respiratory: denies: cough Cardiovascular: denies: chest pain Gastrointestinal: abdominal pain, nausea, vomiting Genitourinary: denies: dysuria, testicular pain Musculoskeletal: denies: back pain Skin: denies: lesions Neurological: weakness Psychiatric: anxiety ED Past Medical Hx - Past Medical History Previous Medical History?: Yes Hx Hypertension: Yes (noncompliant) Hx Congestive Heart Failure: No Hx Diabetes: Yes Hx GERD: Yes Hx Renal Disease: Yes Hx Asthma: No Hx COPD: No Hx HIV: No Additional medical history: Gastroparesis - Surgical History Past Surgical History?: Yes Hx Cholecystectomy: Yes Additional Surgical History: right foot - Social History Smoking Status: Never Smoker Substance Use Type: Marijuana - Medications Home Medications: Home Medications Medication Instructions Recorded Confirmed Last Taken Type Insulin NPH Hum/Reg Insulin Hm 10 units SQ BID #1 vial 07/24/14 12/16/17 Rx [NovoLIN 70-30 100 Unit/ml Vial] HYDROcodone/ACETAMINOPHEN [[place] 1 each PO Q8H PRN #10 tablet 10/27/17 12/16/17 Unknown Rx 5-325 Tablet] Ciprofloxacin HCl [Ciprofloxacin 500 mg PO Q12H #10 tab 12/18/17 Unknown Rx TAB] Promethazine [Phenergan TAB] 25 mg PO Q6HR PRN #20 tab 12/18/17 Unknown Rx amLODIPine [Norvasc] 5 mg PO QDAY #30 tablet 12/18/17 Unknown Rx hydroCHLOROthiazide [HCTZ] 25 mg PO QDAY #30 tablet 01/21/18 Unknown Rx traMADol [Ultram 50 MG tab] 50 mg PO Q6HR PRN #15 tablet 01/21/18 Unknown Rx Acetaminophen [Tylenol Arthritis] 650 mg PO Q6HR PRN #30 tablet.er 04/19/18 Unknown Rx Famotidine [Pepcid] 20 mg PO BID #60 tablet 04/19/18 Unknown Rx Metoclopramide [Reglan TAB] 10 mg PO QID PRN #30 tab 04/19/18 Unknown Rx Promethazine [Phenergan SUPPOS] 50 mg MO Q6H PRN #20 supp.rect 04/19/18 Unknown Rx ED Physical Exam - General Limitations: No Limitations General appearance: alert, in no apparent distress - Head Head exam: Present: atraumatic, normocephalic - Eye Eye exam: Present: normal appearance, EOMI. Absent: nystagmus - ENT ENT exam: Present: normal exam, normal orophraynx, mucous membranes moist, normal external ear exam - Neck Neck exam: Present: normal inspection, full ROM. Absent: tenderness, meningismus - Respiratory Respiratory exam: Present: normal lung sounds bilaterally. Absent: respiratory distress - Cardiovascular Cardiovascular Exam: Present: regular rate, normal rhythm, normal heart sounds. Absent: bradycardia, tachycardia, irregular rhythm, systolic murmur, diastolic murmur, rubs, gallop - GI/Abdominal GI/Abdominal exam: Present: soft. Absent: distended, tenderness, guarding, rebound, rigid, pulsatile mass - Rectal Rectal exam: Present: deferred - Extremities Exam Extremities exam: Present: normal inspection, full ROM, normal capillary refill , other (2+ pulses noted in the bilateral upper, lower extremities. Compartments soft. No long bony tenderness. The pelvis is stable.). Absent: tenderness, pedal edema, joint swelling, calf tenderness - Back Exam Back exam: Present: normal inspection, full ROM. Absent: tenderness, CVA tenderness (R), paraspinal tenderness, vertebral tenderness - Neurological Exam Neurological exam: Present: alert, oriented X3, CN II-XII intact, normal gait, other (Extraocular movements intact. Tongue midline. No facial droop. Facial sensation intact to light touch in the V1, V2, V3 distribution bilaterally. 5 and 5 strength in 4 extremities.. Sensation is intact to light touch in 4 extremities.). Absent: motor sensory deficit - Psychiatric Psychiatric exam: Present: anxious - Skin Skin exam: Present: warm, dry, intact, normal color. Absent: rash ED Course Vital Signs 04/19/18 04/19/18 04/19/18 06:21 08:00 10:00 Temperature 98.1 F 98.7 F Pulse Rate 106 H 116 H 108 H Respiratory 18 8 L 16 Rate Blood Pressure 168/106 Blood Pressure 168/112 186/118 [Left] O2 Sat by Pulse 99 100 Oximetry 04/19/18 04/19/18 04/19/18 10:05 10:07 11:10 Temperature Pulse Rate 108 H 87 Respiratory 16 16 Rate Blood Pressure 186/118 Blood Pressure 102/63 [Left] O2 Sat by Pulse 98 Oximetry ED Medical Decision Making - Lab Data Result diagrams: 04/19/18 09:56 04/19/18 09:56 Vital Signs 04/19/18 04/19/18 04/19/18 06:21 08:00 10:00 Temperature 98.1 F 98.7 F Pulse Rate 106 H 116 H 108 H Respiratory 18 8 L 16 Rate Blood Pressure 168/106 Blood Pressure 168/112 186/118 [Left] O2 Sat by Pulse 99 100 Oximetry 04/19/18 04/19/18 04/19/18 10:05 10:07 11:10 Temperature Pulse Rate 108 H 87 Respiratory 16 16 Rate Blood Pressure 186/118 Blood Pressure 102/63 [Left] O2 Sat by Pulse 98 Oximetry Lab Results 04/19/18 04/19/18 04/19/18 Range/Units 09:56 09:56 09:56 WBC 9.2 (4.5-11.0) K/mm3 RBC 3.94 (3.65-5.03) M/mm3 Hgb 12.1 (11.8-15.2) gm/dl Hct 36.1 (35.5-45.6) % MCV 92 (84-94) fl MCH 31 (28-32) pg MCHC 34 (32-34) % RDW 14.7 (13.2-15.2) % Plt Count 204 (140-440) K/mm3 Lymph % (Auto) 10.2 L (13.4-35.0) % [place] % (Auto) 3.3 (0.0-7.3) % Eos % (Auto) 0.0 (0.0-4.3) % Baso % (Auto) 0.7 (0.0-1.8) % Lymph # 0.9 L (1.2-5.4) K/mm3 [place] # 0.3 (0.0-0.8) K/mm3 Eos # 0.0 (0.0-0.4) K/mm3 Baso # 0.1 (0.0-0.1) K/mm3 Seg Neutrophils % 85.8 H (40.0-70.0) % Seg Neutrophils # 7.9 H (1.8-7.7) K/mm3 PT 13.5 (12.2-14.9) Sec. INR 0.98 (0.87-1.13) APTT 24.3 (24.2-36.6) Sec. Sodium 135 L (137-145) mmol/L Potassium 4.4 (3.6-5.0) mmol/L Chloride 96.4 L (98-107) mmol/L Carbon Dioxide 21 L (22-30) mmol/L Anion Gap 22 mmol/L BUN 39 H (9-20) mg/dL Creatinine 2.4 H (0.8-1.5) mg/dL Estimated GFR 36 ml/min BUN/Creatinine Ratio 16 % Glucose 352 H (75-100) mg/dL Calcium 9.8 (8.4-10.2) mg/dL Magnesium (1.7-2.3) mg/dL Total Bilirubin (0.1-1.2) mg/dL Direct Bilirubin (0-0.2) mg/dL AST (5-40) units/L ALT (7-56) units/L Alkaline Phosphatase (35-129) units/L Total Creatine Kinase 120 (55-170) units/L CK-MB (CK-2) 1.8 (0.0-4.0) ng/mL CK-MB (CK-2) Rel Index 1.5 (0-4) Troponin T (0.00-0.029) ng/mL NT-Pro-B Natriuret Pep (0-450) pg/mL Total Protein (6.3-8.2) g/dL Albumin (3.9-5) g/dL Albumin/Globulin Ratio % 04/19/18 Range/Units 09:56 WBC (4.5-11.0) K/mm3 RBC (3.65-5.03) M/mm3 Hgb (11.8-15.2) gm/dl Hct (35.5-45.6) % MCV (84-94) fl MCH (28-32) pg MCHC (32-34) % RDW (13.2-15.2) % Plt Count (140-440) K/mm3 Lymph % (Auto) (13.4-35.0) % [place] % (Auto) (0.0-7.3) % Eos % (Auto) (0.0-4.3) % Baso % (Auto) (0.0-1.8) % Lymph # (1.2-5.4) K/mm3 [place] # (0.0-0.8) K/mm3 Eos # (0.0-0.4) K/mm3 Baso # (0.0-0.1) K/mm3 Seg Neutrophils % (40.0-70.0) % Seg Neutrophils # (1.8-7.7) K/mm3 PT (12.2-14.9) Sec. INR (0.87-1.13) APTT (24.2-36.6) Sec. Sodium (137-145) mmol/L Potassium (3.6-5.0) mmol/L Chloride (98-107) mmol/L Carbon Dioxide (22-30) mmol/L Anion Gap mmol/L BUN (9-20) mg/dL Creatinine (0.8-1.5) mg/dL Estimated GFR ml/min BUN/Creatinine Ratio % Glucose (75-100) mg/dL Calcium (8.4-10.2) mg/dL Magnesium 1.80 (1.7-2.3) mg/dL Total Bilirubin 0.40 (0.1-1.2) mg/dL Direct Bilirubin < 0.2 (0-0.2) mg/dL AST 15 (5-40) units/L ALT 12 (7-56) units/L Alkaline Phosphatase 102 (35-129) units/L Total Creatine Kinase (55-170) units/L CK-MB (CK-2) (0.0-4.0) ng/mL CK-MB (CK-2) Rel Index (0-4) Troponin T < 0.010 (0.00-0.029) ng/mL NT-Pro-B Natriuret Pep 23.41 (0-450) pg/mL Total Protein 8.9 H (6.3-8.2) g/dL Albumin 4.5 (3.9-5) g/dL Albumin/Globulin Ratio 1.0 % - EKG Data -: EKG Interpreted by Me EKG shows normal: sinus rhythm Rate: normal - EKG Data When compared to previous EKG there are: no significant change 04/19/18 11:34 Compared to prior EKG from 03/02/2018 Sinus, 90 bpm, normal axis, atrial enlargement, normal intervals, not consistent with a STEMI, appears unchanged from prior. - Medical Decision Making Differential diagnosis, including not limited to: GERD, gastritis, hiatal hernia , medication noncompliance hypertension and hyperglycemia secondary to medication noncompliance, diabetic gastroparesis Assessment and plan: 42-year-old gentleman whom I have evaluated in the past. He presents with his typical recurrent symptoms. Prior to my evaluation, laboratory studies, including cardiac enzymes were ordered, the patient is also given labetalol and narcotic therapy prior to my evaluation. Based on his history and physical, and base to my prior evaluation for the patient, I did not suspect atypical presentation of acute coronary syndrome. Furthermore, patient's symptoms have a present for greater than 8 hours, his EKG is unchanged , and his troponin is negative 1. As for the [employer] clinical policy, myocardial infarction may be excluded with 1 set of cardiac enzymes if symptoms are present for greater than 8 hours. His renal insufficiency appears to be mildly worse, and he should follow up with outpatient nephrology for this, his hyperglycemia is a chronic issue, poorly managed, and does not require emergent intervention at this time. The patient is again counseled on the need to follow up with outpatient primary care for ideal management of his chronic medical issues. Critical care attestation.: If time is entered above; I have spent that time in minutes in the direct care of this critically ill patient, excluding procedure time. ED Disposition Clinical Impression: Abdominal pain, Hyperglycemia, Renal insufficiency Disposition: DC-01 TO HOME OR SELFCARE Is pt being admited?: No Does the pt Need Aspirin: No Condition: Good Additional Instructions: Avoid consumption of heavy, spicy foods. Take the medications as needed/ directed. Multiple abnormalities were noted today that require outpatient follow-up. Patient was noted to have mildly worsening kidney function, elevated blood sugar level, and elevated blood pressure. All these seem to be followed up by outpatient primary care doctor. Long-term complications of all the aforementioned may result in stroke disability, paralysis, loss of quality of life. Please follow-up with a primary care doctor within the next 3-4 weeks. For the patient's GERD, gastritis, he may follow up with gastroenterology within the next 3-4 weeks. For the patient's renal insufficiency, he may follow-up with a buyer grain or primary care doctor within the next 3-4 weeks. Avoid consumption of Motrin, ibuprofen, Naprosyn, Aleve. Dr. Segura is a local electronic funds transfer coordinator. Dr. Drake is a local primary care doctor. Dr. Ojeda is a local kidney/nephrology specialist. Referrals: DAVE HALL MD [Staff Physician] - 3-5 Days NEY SEGURA MD [Staff Physician] - 3-5 Days REJI DRAKE MD [Staff Physician] - 3-5 Days
[2018-04-19 15:14] VITALS: BP 107/60
== END 2018-04-19 15:13 | disposition home or self-care (01) ==
LOC: ED 06:17
DX: N28.9 Disorder of kidney and ureter, unspecified (principal); E11.65 Type 2 diabetes mellitus with hyperglycemia; I10 Essential (primary) hypertension; K21.9 Gastro-esophageal reflux disease without esophagitis; F12.10 Cannabis abuse, uncomplicated; Z90.49 Acquired absence of other specified parts of digestive tract; Z79.4 Long term (current) use of insulin
CPT/HCPCS: 36415; 80048; 80074; 82550; 82553; 83735; 83880; 84484; 85025; 85610; 85730; 93005; 93010; 96361; 96372; 96374; 96375; 99284; J1170; J1200; J1630; J7040; J2405; Q0162

== ENCOUNTER 2018-05-29 04:15 | Emergency (ER) | payer SELFPAY ==
[2018-05-29 05:00] VITALS: BP 138/95
[2018-05-29 05:47] LABS: BUN/Creatinine Ratio 15; Blood Urea Nitrogen 22 mg/dL (9-20); Calcium 9.8 mg/dL (8.4-10.2); Hemolysis Index 41
[2018-05-29 05:48] LABS: Basophils # (Auto) 0.1 K/mm3 (0.0-0.1); Basophils % (Auto) 1.1 % (0.0-1.8); Eosinophils # (Auto) 0.1 K/mm3 (0.0-0.4); Eosinophils % (Auto) 1.1 % (0.0-4.3); Hematocrit 33.1 % (35.5-45.6); Hemoglobin 11.2 gm/dl (11.8-15.2); Lymphocytes # (Auto) 2.1 K/mm3 (1.2-5.4); Lymphocytes % (Auto) 17.2 % (13.4-35.0); Mean Corpuscular HGB Conc 34 % (32-34); Mean Corpuscular Hemoglobin 31 pg (28-32); Mean Corpuscular Volume 92 fl (84-94); Monocytes # (Auto) 1.1 K/mm3 (0.0-0.8); Monocytes % (Auto) 9.2 % (0.0-7.3); Platelet Count 217 K/mm3 (140-440); Red Cell Distribution Width 14.8 % (13.2-15.2)
[2018-05-29] MEDS ORDERED: NORCO 5/325 PO STA (08:02)
[2018-05-29] MEDS ORDERED: AUGMENTIN 875 MG PO STA (08:03)
--- NOTE | 2018-05-29 08:08 | Emergency Department Report ---
ED ENT HPI - General Chief complaint: Dental/Oral Stated complaint: LT JAW SWELLING Time Seen by Provider: 05/29/18 08:01 Source: patient Mode of arrival: Ambulatory Limitations: No Limitations - History of Present Illness Initial comments: 42-year-old -[place] male presented to emergency department complaining of a 2 day history of reemergence dental pain. He reports having trouble with his dentition off and on for for quite some time. States within the have some swelling associated with pain while chewing a couple days ago. No fever, chills, sweats, chest pain, palpitation. MD complaint: tooth pain -: month(s) Location: tooth # 1 - area pof pain 2 - area of pain Severity: moderate Quality: aching Consistency: constant Improves with: none Worsens with: eating Associated Symptoms: denies: sore throat, tinnitus, discharge from ear - Related Data Previous Rx's Medication Instructions Recorded Last Taken Type Insulin NPH Hum/Reg Insulin Hm 10 units SQ BID #1 vial 07/24/14 07/08/16 Rx [NovoLIN 70-30 100 Unit/ml Vial] HYDROcodone/ACETAMINOPHEN [[place] 1 each PO Q8H PRN #10 tablet 10/27/17 Unknown Rx 5-325 Tablet] Ciprofloxacin HCl [Ciprofloxacin 500 mg PO Q12H #10 tab 12/18/17 Unknown Rx TAB] Promethazine [Phenergan TAB] 25 mg PO Q6HR PRN #20 tab 12/18/17 Unknown Rx amLODIPine [Norvasc] 5 mg PO QDAY #30 tablet 12/18/17 Unknown Rx hydroCHLOROthiazide [HCTZ] 25 mg PO QDAY #30 tablet 01/21/18 Unknown Rx traMADol [Ultram 50 MG tab] 50 mg PO Q6HR PRN #15 tablet 01/21/18 Unknown Rx Acetaminophen [Tylenol Arthritis] 650 mg PO Q6HR PRN #30 tablet.er 04/19/18 Unknown Rx Famotidine [Pepcid] 20 mg PO BID #60 tablet 04/19/18 Unknown Rx Metoclopramide [Reglan TAB] 10 mg PO QID PRN #30 tab 04/19/18 Unknown Rx Promethazine [Phenergan SUPPOS] 50 mg [place] Q6H PRN #20 supp.rect 04/19/18 Unknown Rx Dicyclomine [Bentyl] 20 mg PO QID PRN #20 tablet 05/24/18 Unknown Rx Insulin NPH/Regular [[place] 70/30] 10 unit SUB-Q BID #1 vial 05/24/18 Unknown Rx Ondansetron [Zofran Odt] 4 mg PO Q8HR PRN #20 tab.rapdis 05/24/18 Unknown Rx Promethazine [Phenergan TAB] 25 mg PO Q6HR PRN #20 tab 05/24/18 Unknown Rx amLODIPine [Norvasc] 5 mg PO DAILY #30 tab 05/24/18 Unknown Rx hydroCHLOROthiazide [HCTZ] 25 mg PO QDAY #30 tablet 05/24/18 Unknown Rx Amoxicillin 500 mg PO QID #40 capsule 05/29/18 Unknown Rx Chlorhexidine Mouthwash [Peridex] 15 ml MM BID #1 bottle 05/29/18 Unknown Rx Ketorolac [Toradol] 10 mg PO Q6H PRN #15 tablet 05/29/18 Unknown Rx Lidocaine Viscous 2% 5 ml MM Q3H PRN #120 udc 05/29/18 Unknown Rx Allergies Allergy/AdvReac Type Severity Reaction Status Date / Time No Known Allergies Allergy Verified 12/11/15 07:34 ED Dental HPI - General Chief complaint: Dental/Oral Stated complaint: LT JAW SWELLING Time Seen by Provider: 05/29/18 08:01 Source: patient Mode of arrival: Ambulatory Limitations: No Limitations - Related Data Previous Rx's Medication Instructions Recorded Last Taken Type Insulin NPH Hum/Reg Insulin Hm 10 units SQ BID #1 vial 07/24/14 07/08/16 Rx [NovoLIN 70-30 100 Unit/ml Vial] HYDROcodone/ACETAMINOPHEN [[place] 1 each PO Q8H PRN #10 tablet 10/27/17 Unknown Rx 5-325 Tablet] Ciprofloxacin HCl [Ciprofloxacin 500 mg PO Q12H #10 tab 12/18/17 Unknown Rx TAB] Promethazine [Phenergan TAB] 25 mg PO Q6HR PRN #20 tab 12/18/17 Unknown Rx amLODIPine [Norvasc] 5 mg PO QDAY #30 tablet 12/18/17 Unknown Rx hydroCHLOROthiazide [HCTZ] 25 mg PO QDAY #30 tablet 01/21/18 Unknown Rx traMADol [Ultram 50 MG tab] 50 mg PO Q6HR PRN #15 tablet 01/21/18 Unknown Rx Acetaminophen [Tylenol Arthritis] 650 mg PO Q6HR PRN #30 tablet.er 04/19/18 Unknown Rx Famotidine [Pepcid] 20 mg PO BID #60 tablet 04/19/18 Unknown Rx Metoclopramide [Reglan TAB] 10 mg PO QID PRN #30 tab 04/19/18 Unknown Rx Promethazine [Phenergan SUPPOS] 50 mg [place] Q6H PRN #20 supp.rect 04/19/18 Unknown Rx Dicyclomine [Bentyl] 20 mg PO QID PRN #20 tablet 05/24/18 Unknown Rx Insulin NPH/Regular [Novolin 70/30] 10 unit SUB-Q BID #1 vial 05/24/18 Unknown Rx Ondansetron [Zofran Odt] 4 mg PO Q8HR PRN #20 tab.rapdis 05/24/18 Unknown Rx Promethazine [Phenergan TAB] 25 mg PO Q6HR PRN #20 tab 05/24/18 Unknown Rx amLODIPine [Norvasc] 5 mg PO DAILY #30 tab 05/24/18 Unknown Rx hydroCHLOROthiazide [HCTZ] 25 mg PO QDAY #30 tablet 05/24/18 Unknown Rx Amoxicillin 500 mg PO QID #40 capsule 05/29/18 Unknown Rx Chlorhexidine Mouthwash [Peridex] 15 ml MM BID #1 bottle 05/29/18 Unknown Rx Ketorolac [Toradol] 10 mg PO Q6H PRN #15 tablet 05/29/18 Unknown Rx Lidocaine Viscous 2% 5 ml MM Q3H PRN #120 udc 05/29/18 Unknown Rx Allergies Allergy/AdvReac Type Severity Reaction Status Date / Time No Known Allergies Allergy Verified 12/11/15 07:34 ED Review of Systems ROS: Stated complaint: LT JAW SWELLING Other details as noted in HPI Constitutional: denies: chills, fever Eyes: denies: eye pain, eye discharge, vision change ENT: dental pain. denies: ear pain, throat pain Respiratory: denies: cough, shortness of breath, wheezing Cardiovascular: denies: chest pain, palpitations Endocrine: no symptoms reported Gastrointestinal: denies: abdominal pain, nausea, diarrhea Genitourinary: denies: urgency, dysuria Musculoskeletal: denies: back pain, joint swelling, arthralgia Skin: denies: rash, lesions Neurological: denies: headache, weakness, paresthesias Psychiatric: denies: anxiety, depression Hematological/Lymphatic: denies: easy bleeding, easy bruising ED Past Medical Hx - Past Medical History Hx Hypertension: Yes (noncompliant) Hx Congestive Heart Failure: No Hx Diabetes: Yes Hx GERD: Yes Hx Renal Disease: Yes Hx Asthma: No Hx COPD: No Hx HIV: No Additional medical history: Gastroparesis - Surgical History Hx Cholecystectomy: Yes Additional Surgical History: right foot - Social History Smoking Status: Never Smoker Substance Use Type: None - Medications Home Medications: Home Medications Medication Instructions Recorded Confirmed Last Taken Type Insulin NPH Hum/Reg Insulin Hm 10 units SQ BID #1 vial 07/24/14 12/16/17 Rx [NovoLIN 70-30 100 Unit/ml Vial] HYDROcodone/ACETAMINOPHEN [[place] 1 each PO Q8H PRN #10 tablet 10/27/17 12/16/17 Unknown Rx 5-325 Tablet] Ciprofloxacin HCl [Ciprofloxacin 500 mg PO Q12H #10 tab 12/18/17 Unknown Rx TAB] Promethazine [Phenergan TAB] 25 mg PO Q6HR PRN #20 tab 12/18/17 Unknown Rx amLODIPine [Norvasc] 5 mg PO QDAY #30 tablet 12/18/17 Unknown Rx hydroCHLOROthiazide [HCTZ] 25 mg PO QDAY #30 tablet 01/21/18 Unknown Rx traMADol [Ultram 50 MG tab] 50 mg PO Q6HR PRN #15 tablet 01/21/18 Unknown Rx Acetaminophen [Tylenol Arthritis] 650 mg PO Q6HR PRN #30 tablet.er 04/19/18 Unknown Rx Famotidine [Pepcid] 20 mg PO BID #60 tablet 04/19/18 Unknown Rx Metoclopramide [Reglan TAB] 10 mg PO QID PRN #30 tab 04/19/18 Unknown Rx Promethazine [Phenergan SUPPOS] 50 mg [place] Q6H PRN #20 supp.rect 04/19/18 Unknown Rx Dicyclomine [Bentyl] 20 mg PO QID PRN #20 tablet 05/24/18 Unknown Rx Insulin NPH/Regular [Novolin 70/30] 10 unit SUB-Q BID #1 vial 05/24/18 Unknown Rx Ondansetron [Zofran Odt] 4 mg PO Q8HR PRN #20 tab.rapdis 05/24/18 Unknown Rx Promethazine [Phenergan TAB] 25 mg PO Q6HR PRN #20 tab 05/24/18 Unknown Rx amLODIPine [Norvasc] 5 mg PO DAILY #30 tab 05/24/18 Unknown Rx hydroCHLOROthiazide [HCTZ] 25 mg PO QDAY #30 tablet 05/24/18 Unknown Rx Amoxicillin 500 mg PO QID #40 capsule 05/29/18 Unknown Rx Chlorhexidine Mouthwash [Peridex] 15 ml MM BID #1 bottle 05/29/18 Unknown Rx Ketorolac [Toradol] 10 mg PO Q6H PRN #15 tablet 05/29/18 Unknown Rx Lidocaine Viscous 2% 5 ml MM Q3H PRN #120 udc 05/29/18 Unknown Rx ED Physical Exam - General Limitations: No Limitations General appearance: alert, in no apparent distress - Head Head exam: Present: atraumatic, normocephalic - Eye Eye exam: Present: normal appearance, PERRL, EOMI Pupils: Present: normal accommodation - ENT ENT exam: Present: normal exam, mucous membranes moist, other (severity severe erosions to teeth #13-15 gingival swelling. Is also erosion to teeth #18 and 19. Mild swelling. Tongue and uvula are midline. Normal voice, no drooling. Airway is patent) - Neck Neck exam: Present: normal inspection - Respiratory Respiratory exam: Present: normal lung sounds bilaterally. Absent: respiratory distress, rales, rhonchi, decreased breath sounds, prolonged expiratory - Cardiovascular Cardiovascular Exam: Present: regular rate, normal rhythm. Absent: systolic murmur, diastolic murmur, rubs, gallop - GI/Abdominal GI/Abdominal exam: Present: soft, normal bowel sounds. Absent: distended - Rectal Rectal exam: Present: deferred - Extremities Exam Extremities exam: Present: normal inspection, full ROM, normal capillary refill. Absent: pedal edema - Back Exam Back exam: Present: normal inspection, full ROM. Absent: CVA tenderness (R), CVA tenderness (L) - Neurological Exam Neurological exam: Present: alert, oriented X3, CN II-XII intact - Psychiatric Psychiatric exam: Present: normal affect, normal mood - Skin Skin exam: Present: warm, dry, intact, normal color. Absent: rash ED Course Vital Signs 05/29/18 04:44 Temperature 99.5 F Pulse Rate 100 H Respiratory 18 Rate Blood Pressure 138/95 O2 Sat by Pulse 100 Oximetry ED Medical Decision Making - Lab Data Result diagrams: 05/29/18 05:06 05/29/18 05:06 - Medical Decision Making I discussed with Mr. Jones. The need to follow-up with a dentist for definitive treatment of his chronic recurrent dental issue. Also advised him the importance of good oral care with diabetes Critical care attestation.: If time is entered above; I have spent that time in minutes in the direct care of this critically ill patient, excluding procedure time. ED Disposition Clinical Impression: Dentalgia Disposition: DC-01 TO HOME OR SELFCARE Is pt being admited?: No Does the pt Need Aspirin: No Condition: Stable Instructions: Dental Caries (ED), Toothache (ED) Referrals: PRIMARY CARE, [Primary Care Provider] - 3-5 Days [facility] [Outside] - 3-5 Days
== END 2018-05-29 09:00 | disposition home or self-care (01) ==
LOC: ED 04:15
DX: K08.89 Other specified disorders of teeth and supporting structures (principal); I12.9 Hypertensive chronic kidney disease with stage 1 through stage 4 chronic kidney disease, or unspecified chronic kidney disease; E11.22 Type 2 diabetes mellitus with diabetic chronic kidney disease; N18.9 Chronic kidney disease, unspecified; Z90.49 Acquired absence of other specified parts of digestive tract; Z79.4 Long term (current) use of insulin
CPT/HCPCS: 36415; 80048; 82962; 85025; 99284

== ENCOUNTER 2019-06-07 15:15 | Emergency (ER) | payer SELFPAY ==
--- NOTE | 2019-06-07 15:53 | Emergency Department Report ---
Blank Doc - Documentation Documentation: 43-year-old male that presents with abdominal pain. This initial assessment/diagnostic orders/clinical plan/treatment(s) is/are subject to change based on patient's health status, clinical progression and re- assessment by fellow clinical providers in the ED. Further treatment and workup at subsequent clinical providers discretion. Patient/guardians urged not to elope from the ED as their condition may be serious if not clinically assessed and managed. Initial orders include: 1- Patient sent to [facility] for further evaluation and treatment 2- labs 3- UA
[2019-06-07 16:13] LABS: Basophils # (Auto) 0.1 K/mm3 (0.0-0.1); Basophils % (Auto) 0.6 % (0.0-1.8); Hematocrit 40.9 % (35.5-45.6); Hemoglobin 13.5 gm/dl (11.8-15.2); Lymphocytes # (Auto) 1.6 K/mm3 (1.2-5.4); Lymphocytes % (Auto) 8.5 % (13.4-35.0); Mean Corpuscular HGB Conc 33 % (32-34); Mean Corpuscular Volume 90 fl (84-94); Monocytes # (Auto) 1.4 K/mm3 (0.0-0.8); Monocytes % (Auto) 7.2 % (0.0-7.3); Platelet Count 204 K/mm3 (140-440); Red Blood Count 4.57 M/mm3 (3.65-5.03); Red Cell Distribution Width 14.5 % (13.2-15.2)
[2019-06-07 16:17] LABS: Bilirubin,Urine NEG (Negative); Blood,Urine MOD (Negative); Color,Urine Yellow (Yellow); Granular Casts,Urine 3 /LPF; Mucus,Urine FEW /HPF; Urobilinogen,Urine < 2.0 mg/dL (<2.0)
[2019-06-07 16:19] LABS: Protein,Urine >500 mg/dL (Negative)
[2019-06-07 16:31] LABS: Albumin 4.7 g/dL (3.9-5); Calcium 10.6 mg/dL (8.4-10.2)
[2019-06-07] MEDS ORDERED: SODIUM CHLORIDE 0.9% 1000 ML 1,000 ML ONE (19:19)
[2019-06-07] MEDS ORDERED: SODIUM CHLORIDE 0.9% 1000 ML 1,000 ML IV ONE (19:23)
[2019-06-07] MEDS ORDERED: INSULIN REGULAR, HUMAN 100 UNITS/1 ML IV ONE ×2 (19:50→20:18)
[2019-06-07] MEDS ORDERED: MORPHINE 4 MG/1 ML INJ IV STA (20:58)
--- NOTE | 2019-06-07 21:22 | Cat Scan Report ---
CT ABDOMEN AND PELVIS WITHOUT CONTRAST INDICATION: Lower abdominal pain. COMPARISON: CT abdomen and pelvis without contrast from 03/03/2018. TECHNIQUE: Axial, coronal and sagittal CT imaging of the abdomen and pelvis was performed without co ntrast. Lack of intravenous contrast limits evaluation of the vascular and solid organs. All CT sca ns at this location are performed using CT dose reduction for ALARA by means of automated exposure co ntrol. FINDINGS: LOWER CHEST: Limited evaluation due to motion artifact. The lung bases are clear. There is nonspecifi c moderate thickening of the distal esophagus. No additional significant abnormality is seen. LIVER: No significant abnormality. BILIARY: Prior cholecystectomy. No biliary ductal dilatation. PANCREAS: No significant abnormality. SPLEEN: No significant abnormality. ADRENALS: No significant abnormality. KIDNEYS AND URETERS: No significant abnormality. GI TRACT: No significant abnormality of the stomach, small bowel or colon. Unremarkable appendix. PERITONEUM: No free fluid. No free air. No fluid collection. LYMPH NODES: No significant adenopathy. VASCULATURE: The aorta is normal in caliber with mild generalized atherosclerosis. URINARY BLADDER: No significant abnormality. REPRODUCTIVE ORGANS: No significant abnormality. ADDITIONAL FINDINGS: None. SKELETAL SYSTEM: No acute abnormality is seen. There are mild degenerative changes of the spine. IMPRESSION: 1. No acute abnormality of the abdomen or pelvis. 2. Additional findings as above. Signer Name: Juanjo Keith MD Signed: 06/07/2019 9:18 PM Workstation Name: [id number]
--- NOTE | 2019-06-07 21:23 | Emergency Department Report ---
ED Asthma HPI - General Chief Complaint: Abdominal Pain Stated Complaint: ABD PAIN Time Seen by Provider: 06/07/19 15:52 Source: patient Mode of arrival: Ambulatory Limitations: No Limitations - History of Present Illness MD Complaint: shortness of breath, wheezing -: Gradual Severity: mild Associated Symptoms: dry cough Treatments Prior to Arrival: inhaled bronchodilator - Related Data Current Asthma Therapy: none Previous Rx's Medication Instructions Recorded Last Taken Type Insulin Aspart [Novolog] 10 units SQ BID 30 Days #10 ml 07/12/18 Unknown Rx Promethazine [Phenergan] 25 mg PO Q8HR PRN #30 tab 07/12/18 Unknown Rx Allergies Allergy/AdvReac Type Severity Reaction Status Date / Time No Known Allergies Allergy Verified 06/07/19 15:18 ED Review of Systems ROS: Stated complaint: ABD PAIN Other details as noted in HPI Comment: All other systems reviewed and negative ED Past Medical Hx - Past Medical History Previous Medical History?: Yes Hx Hypertension: Yes (noncompliant) Hx Congestive Heart Failure: No Hx Diabetes: Yes Hx GERD: Yes Hx Renal Disease: Yes Hx Asthma: No Hx COPD: No Hx HIV: No Additional medical history: Gastroparesis - Surgical History Past Surgical History?: Yes Hx Cholecystectomy: Yes Additional Surgical History: right foot - Social History Smoking Status: Never Smoker - Medications Home Medications: Home Medications Medication Instructions Recorded Confirmed Last Taken Type Insulin Aspart [Novolog] 10 units SQ BID 30 Days #10 ml 07/12/18 Unknown Rx Promethazine [Phenergan] 25 mg PO Q8HR PRN #30 tab 07/12/18 Unknown Rx ED Physical Exam - General Limitations: No Limitations General appearance: alert, in no apparent distress - Head Head exam: Present: atraumatic, normocephalic - Eye Eye exam: Present: normal appearance, PERRL, EOMI Pupils: Present: normal accommodation - ENT ENT exam: Present: normal exam, normal orophraynx, mucous membranes moist - Neck Neck exam: Present: normal inspection, full ROM - Respiratory Respiratory exam: Present: normal lung sounds bilaterally. Absent: respiratory distress - Cardiovascular Cardiovascular Exam: Present: regular rate, normal rhythm. Absent: systolic murmur, diastolic murmur, rubs, gallop - GI/Abdominal GI/Abdominal exam: Present: soft, normal bowel sounds - Rectal Rectal exam: Present: deferred - Extremities Exam Extremities exam: Present: normal inspection - Back Exam Back exam: Present: normal inspection - Neurological Exam Neurological exam: Present: alert, oriented X3 - Psychiatric Psychiatric exam: Present: normal affect, normal mood - Skin Skin exam: Present: warm, dry, intact, normal color. Absent: rash ED Course Vital Signs 06/07/19 06/07/19 15:18 19:20 Temperature 98.4 F Pulse Rate 119 H Respiratory 20 19 Rate Blood Pressure 149/98 [Left] O2 Sat by Pulse 100 Oximetry ED Medical Decision Making - Lab Data Result diagrams: 06/07/19 15:47 06/07/19 15:47 Critical care attestation.: If time is entered above; I have spent that time in minutes in the direct care of this critically ill patient, excluding procedure time. ED Disposition Condition: Stable Referrals: PRIMARY CARE [Primary Care Provider] - 3-5 Days
--- NOTE | 2019-06-07 22:47 | Emergency Department Report ---
ED Abdominal Pain HPI - General Chief Complaint: Abdominal Pain Stated Complaint: ABD PAIN Time Seen by Provider: 06/07/19 15:52 Source: patient Mode of arrival: Ambulatory Limitations: No Limitations - History of Present Illness Initial Comments: 43-year-old [place] male with a known past medical history of cholecystectomy ,diabetes mellitus, hypertension, renal insufficiency, erosive esophagitis presents to the emergency department complaining of abdominal pain which she feels is related to his gastroparesis associated with vomiting and diarrhea. Reports having 8-10 episodes of vomiting and about 4 episodes of diarrhea. Pain is dull and throbbing and worse with palpation and his vomiting episodes. Reports no fever, chills or sweats. No hemoptysis, hematemesis, hematochezia. He reports no constipation. There is no dysuria, hematuria or rashes. He's been seen in the emergency department for similar symptoms's several times in the past and continues to [place]'s issue with the emergency room visit. MD Complaint: abdominal pain Radiation: none Migration to: no migration Severity scale (0 -10): 10 Quality: dull Consistency: constant Improves With: nothing Worsens With: nothing Associated Symptoms: denies other symptoms. denies: vomiting, diarrhea, constipation, dysuria, hematochezia, hematuria, anorexia, syncope - Related Data Previous Rx's Medication Instructions Recorded Last Taken Type Insulin Aspart [Novolog] 10 units SQ BID 30 Days #10 ml 07/12/18 Unknown Rx Promethazine [Phenergan] 25 mg PO Q8HR PRN #30 tab 07/12/18 Unknown Rx Hyoscyamine Subl [Levsin Sl 0.125 0.125 mg SL Q6HR PRN #20 tab 06/07/19 Unknown Rx TAB] Ondansetron [Zofran ODT TAB] 8 mg PO Q12HR #14 tab.rapdis 06/07/19 Unknown Rx Allergies Allergy/AdvReac Type Severity Reaction Status Date / Time No Known Allergies Allergy Verified 06/07/19 15:18 ED Review of Systems ROS: Stated complaint: ABD PAIN Other details as noted in HPI Comment: All other systems reviewed and negative ED Past Medical Hx - Past Medical History Previous Medical History?: Yes Hx Hypertension: Yes (noncompliant) Hx Congestive Heart Failure: No Hx Diabetes: Yes Hx GERD: Yes Hx Renal Disease: Yes Hx Asthma: No Hx COPD: No Hx HIV: No Additional medical history: Gastroparesis - Surgical History Past Surgical History?: Yes Hx Cholecystectomy: Yes Additional Surgical History: right foot - Social History Smoking Status: Never Smoker - Medications Home Medications: Home Medications Medication Instructions Recorded Confirmed Last Taken Type Insulin Aspart [Novolog] 10 units SQ BID 30 Days #10 ml 07/12/18 Unknown Rx Promethazine [Phenergan] 25 mg PO Q8HR PRN #30 tab 07/12/18 Unknown Rx Hyoscyamine Subl [Levsin Sl 0.125 0.125 mg SL Q6HR PRN #20 tab 06/07/19 Unknown Rx TAB] Ondansetron [Zofran ODT TAB] 8 mg PO Q12HR #14 tab.rapdis 06/07/19 Unknown Rx ED Physical Exam - General Limitations: No Limitations General appearance: alert, in no apparent distress - Head Head exam: Present: atraumatic, normocephalic - Eye Eye exam: Present: normal appearance, PERRL, EOMI Pupils: Present: normal accommodation - ENT ENT exam: Present: normal exam, normal orophraynx, mucous membranes moist - Neck Neck exam: Present: normal inspection, full ROM. Absent: tenderness - Respiratory Respiratory exam: Present: normal lung sounds bilaterally. Absent: respiratory distress, wheezes, rales, rhonchi, chest wall tenderness, accessory muscle use - Cardiovascular Cardiovascular Exam: Present: regular rate, normal rhythm. Absent: systolic murmur, diastolic murmur, rubs, gallop - GI/Abdominal GI/Abdominal exam: Present: soft, tenderness (soft), normal bowel sounds. Absent: guarding, rebound, hypoactive bowel sounds, organomegaly, mass - Rectal Rectal exam: Present: deferred - Extremities Exam Extremities exam: Present: normal inspection, normal capillary refill - Back Exam Back exam: Present: normal inspection - Neurological Exam Neurological exam: Present: alert, oriented X3, CN II-XII intact, normal gait - Psychiatric Psychiatric exam: Present: normal affect, normal mood - Skin Skin exam: Present: warm, dry, intact, normal color. Absent: rash ED Course Vital Signs 06/07/19 06/07/19 15:18 19:20 Temperature 98.4 F Pulse Rate 119 H Respiratory 20 19 Rate Blood Pressure 149/98 [Left] O2 Sat by Pulse 100 Oximetry ED Medical Decision Making - Lab Data Result diagrams: 06/07/19 15:47 06/07/19 15:47 - Radiology Data Radiology results: report reviewed (CT scan shows no acute processes) - Medical Decision Making 43-year-old -[place] male with past medical history of renal insufficiency, diabetes, recurrent gastroparesis and several visits to the emergency department for abdominal pain nausea and vomiting secondary to gastroparesis presents to the emergency room today with a similar complaint. Complains associated with some vomiting and a few episodes of diarrhea as laboratory data did show elevated white count of 19 but his urinalysis was relatively benign. His blood sugar was 522 at the time of discharge had increased to around 180-200. Heart rate had improved from 119 298 patient is ambulatory in no acute distress. His creatinine is 3.1 has a history of stage III renal insufficiency. He is resting comfortably. He is tolerating no acute distress plan is have him follow with his primary care provider and GI for further evaluation of his diabetes and his recurrent gastroparesis Critical care attestation.: If time is entered above; I have spent that time in minutes in the direct care of this critically ill patient, excluding procedure time. ED Disposition Clinical Impression: Diabetes, Abdominal pain, Vomiting Disposition: DC-01 TO HOME OR SELFCARE Is pt being admited?: No Does the pt Need Aspirin: No Condition: Stable Instructions: Diabetes Mellitus Type 2 in Adults (ED), Acute Nausea and Vomiting (ED) Referrals: PRIMARY CARE, [Primary Care Provider] - 3-5 Days
[2019-06-07] MEDS ORDERED: ONDANSETRON 4 MG ODT TAB PO STA (23:30)
[2019-06-08 00:09] VITALS: BP 141/88
== END 2019-06-08 00:09 | disposition home or self-care (01) ==
LOC: ED 15:15
DX: J45.909 Unspecified asthma, uncomplicated (principal); E11.22 Type 2 diabetes mellitus with diabetic chronic kidney disease; I12.9 Hypertensive chronic kidney disease with stage 1 through stage 4 chronic kidney disease, or unspecified chronic kidney disease; N18.9 Chronic kidney disease, unspecified; R11.10 Vomiting, unspecified; Z79.4 Long term (current) use of insulin; Z90.49 Acquired absence of other specified parts of digestive tract
CPT/HCPCS: 36415; 74176; 80053; 81001; 82962; 83690; 85025; 93005; 93010; 96361; 96374; 96375; 99284; J2270; J7030; J1815

== ENCOUNTER 2019-06-08 10:21 | Emergency (ER) | payer SELFPAY ==
[2019-06-08] MEDS ORDERED: ONDANSETRON 4 MG/2 ML INJ IV ONE (12:34)
[2019-06-08] MEDS ORDERED: SODIUM CHLORIDE 0.9% 1000 ML 1,000 ML IV ONE (12:34)
[2019-06-08] MEDS ORDERED: MORPHINE 4 MG/1 ML INJ IV ONE (12:34)
[2019-06-08 13:46] LABS: Basophils # (Auto) 0.1 K/mm3 (0.0-0.1); Basophils % (Auto) 0.3 % (0.0-1.8); Eosinophils % (Auto) 0.1 % (0.0-4.3); Hematocrit 41.7 % (35.5-45.6); Hemoglobin 13.8 gm/dl (11.8-15.2); Lymphocytes # (Auto) 1.8 K/mm3 (1.2-5.4); Lymphocytes % (Auto) 12.4 % (13.4-35.0); Mean Corpuscular HGB Conc 33 % (32-34); Mean Corpuscular Volume 91 fl (84-94); Monocytes % (Auto) 7.1 % (0.0-7.3); Platelet Count 174 K/mm3 (140-440); Red Blood Count 4.58 M/mm3 (3.65-5.03); Red Cell Distribution Width 14.6 % (13.2-15.2)
[2019-06-08 14:09] LABS: Albumin 4.5 g/dL (3.9-5); Calcium 9.8 mg/dL (8.4-10.2)
--- NOTE | 2019-06-08 14:21 | Emergency Department Report ---
ED Abdominal Pain HPI - General Chief Complaint: Abdominal Pain Stated Complaint: ABD PAIN Time Seen by Provider: 06/08/19 12:33 Source: patient Mode of arrival: Ambulatory Limitations: No Limitations - History of Present Illness Initial Comments: This is a 43-year-old male nontoxic, well nourished in appearance, no acute signs of distress presents to the ED with c/o of acute on chronic intermittnet nausea and vomiting and abdominal pain. Patient was seen yesterday and had labs and CT scan obtained and discharge but stated did not fill medication for Zofran and came back today for n/v. Patient agrees to filling Levsin and has taken today. Patient describes vomiting as food content and yellow gastric acid. Patient describes abdominal pain as cramping and aching with level of 3/10 diffuse. Patient denies chest pain, short of breath, fever, chills, headache, stiff neck, numbness or tingling. Patient denies any diarrhea or constipation. Patient denies any recent travels. MD Complaint: abdominal pain -: days(s) Location: diffuse Radiation: none Severity: mild Severity scale (0 -10): 3 Quality: cramping, aching Consistency: constant Improves With: nothing Worsens With: nothing Associated Symptoms: nausea, vomiting. denies: diarrhea, fever, chills, constipation, dysuria, hematemesis, hematochezia, melena, hematuria, anorexia, syncope - Related Data Previous Rx's Medication Instructions Recorded Last Taken Type Insulin Aspart [Novolog] 10 units SQ BID 30 Days #10 ml 07/12/18 Unknown Rx Promethazine [Phenergan] 25 mg PO Q8HR PRN #30 tab 07/12/18 Unknown Rx Hyoscyamine Subl [Levsin Sl 0.125 0.125 mg SL Q6HR PRN #20 tab 06/07/19 Unknown Rx TAB] Ondansetron [Zofran ODT TAB] 8 mg PO Q12HR #14 tab.rapdis 06/07/19 Unknown Rx Metoclopramide [Reglan] 10 mg PO TID PRN #20 tab 06/08/19 Unknown Rx Allergies Allergy/AdvReac Type Severity Reaction Status Date / Time No Known Allergies Allergy Verified 06/07/19 15:18 ED Review of Systems ROS: Stated complaint: ABD PAIN Other details as noted in HPI Constitutional: denies: chills, fever Eyes: denies: eye pain, eye discharge, vision change ENT: denies: ear pain, throat pain Respiratory: denies: cough, shortness of breath, wheezing Cardiovascular: denies: chest pain, palpitations Endocrine: no symptoms reported Gastrointestinal: abdominal pain, nausea, vomiting. denies: diarrhea Genitourinary: denies: urgency, dysuria Musculoskeletal: denies: back pain, joint swelling, arthralgia Skin: denies: rash, lesions Neurological: denies: headache, weakness, paresthesias Psychiatric: denies: anxiety, depression Hematological/Lymphatic: denies: easy bleeding, easy bruising ED Past Medical Hx - Past Medical History Previous Medical History?: Yes Hx Hypertension: Yes (noncompliant) Hx Congestive Heart Failure: No Hx Diabetes: Yes Hx GERD: Yes Hx Renal Disease: Yes Hx Asthma: No Hx COPD: No Hx HIV: No Additional medical history: Gastroparesis - Surgical History Past Surgical History?: Yes Hx Cholecystectomy: Yes Additional Surgical History: right foot - Social History Smoking Status: Never Smoker Substance Use Type: Marijuana - Medications Home Medications: Home Medications Medication Instructions Recorded Confirmed Last Taken Type Insulin Aspart [Novolog] 10 units SQ BID 30 Days #10 ml 07/12/18 Unknown Rx Promethazine [Phenergan] 25 mg PO Q8HR PRN #30 tab 07/12/18 Unknown Rx Hyoscyamine Subl [Levsin Sl 0.125 0.125 mg SL Q6HR PRN #20 tab 06/07/19 Unknown Rx TAB] Ondansetron [Zofran ODT TAB] 8 mg PO Q12HR #14 tab.rapdis 06/07/19 Unknown Rx Metoclopramide [Reglan] 10 mg PO TID PRN #20 tab 06/08/19 Unknown Rx ED Physical Exam - General Limitations: No Limitations General appearance: alert, in no apparent distress - Head Head exam: Present: atraumatic, normocephalic - Neck Neck exam: Present: normal inspection, full ROM. Absent: tenderness, meningismus, lymphadenopathy - Respiratory Respiratory exam: Present: normal lung sounds bilaterally. Absent: respiratory distress, wheezes, rales, rhonchi, stridor, chest wall tenderness, accessory muscle use, decreased breath sounds, prolonged expiratory - Cardiovascular Cardiovascular Exam: Present: regular rate, normal rhythm, normal heart sounds - GI/Abdominal GI/Abdominal exam: Present: soft, normal bowel sounds. Absent: distended, tenderness, guarding, rebound, rigid, diminished bowel sounds - Extremities Exam Extremities exam: Present: normal inspection, full ROM, normal capillary refill. Absent: tenderness - Back Exam Back exam: Present: normal inspection, full ROM. Absent: tenderness, CVA tenderness (R), CVA tenderness (L), muscle spasm, paraspinal tenderness, vertebral tenderness, rash noted - Neurological Exam Neurological exam: Present: alert, oriented X3, normal gait - Psychiatric Psychiatric exam: Present: normal affect, normal mood - Skin Skin exam: Present: warm, dry, intact, normal color. Absent: rash ED Course Vital Signs 06/08/19 10:25 Temperature 98.7 F Pulse Rate 113 H Respiratory 18 Rate Blood Pressure 148/91 O2 Sat by Pulse 96 Oximetry - Reevaluation(s) Reevaluation #1: 06/08/19 14:20 Patient is speaking in full sentences with no signs of distress noted. - Consultations Consultation #1: 06/08/19 14:25 Patient has been consulted with Mariann Sharma about patient history, physical exam, and labs vs. yesterday labs and CT scan from yesterday and stated patient can be discharge with follow-up. ED Medical Decision Making - Lab Data Result diagrams: 06/08/19 13:37 06/08/19 13:37 - Medical Decision Making This is a 43-year-old male that presents with abdominal pain and n/v. Patient is stable and was examined by me. There is no abdominal tenderness. Negative signs of symptoms of appendicitis. Labs obtained and are better from yesterday. UA obtained. CT from yesterday and labs that was obtained has been reviewed with Dr. Aceves and agrees to the discharge plan of care. Patient is notified of the report with no questions noted by the patient. Vital signs are stable prior to discharge. Patient received medical treatment in the ED which patient stated symptoms has resovled and subsided. Was instructed note to operate any machinery due to possible drowsiness and stated someone will drive the patient home. A by mouth challenge has been obtained and patient tolerated well with no nausea vomiting. Patient was also instructed to Follow-up with a primary care, gastrologist and farm machine operator doctor in 2 days or if symptoms worsen and continue return to emergency room as soon as possible. At time of discharge, the patient does not seem toxic or ill in appearance. No acute signs of distress noted. Patient agrees to discharge treatment plan of care. No further questions noted by the patient. Patient received a goodRX card with a new perspiration for Reglan due to not filling Zofran due to expensive. Critical care attestation.: If time is entered above; I have spent that time in minutes in the direct care of this critically ill patient, excluding procedure time. ED Disposition Clinical Impression: Chronic abdominal pain, Nausea & vomiting Disposition: - TO HOME OR SELFCARE Is pt being admited?: No Does the pt Need Aspirin: No Condition: Stable Additional Instructions: Follow-up with a primary care, gastrologist and farm machine operator doctor in 2 days or if symptoms worsen and continue return to emergency room as soon as possible. Prescriptions: Metoclopramide [Reglan] 10 mg PO TID PRN #20 tab PRN Reason: Nausea Referrals: PRIMARY MD CESAR [Primary Care Provider] - 3-5 Days CADENCE AREVALO MD [Staff Physician] - 3-5 Days JEAN HENLEY MD [Staff Physician] - 3-5 Days [facility] [Provider Group] - 3-5 Days [facility] [Outside] - 3-5 Days
[2019-06-08 15:19] LABS: Bilirubin,Urine NEG (Negative); Blood,Urine SM (Negative); Color,Urine Yellow (Yellow); Hyaline Casts,Urine 4 /LPF; Mucus,Urine FEW /HPF; Urobilinogen,Urine < 2.0 mg/dL (<2.0)
[2019-06-08 15:58] VITALS: BP 125/77
== END 2019-06-08 15:59 | disposition home or self-care (01) ==
LOC: ED 10:21
DX: R11.2 Nausea with vomiting, unspecified (principal); R10.84 Generalized abdominal pain; G89.29 Other chronic pain; I12.9 Hypertensive chronic kidney disease with stage 1 through stage 4 chronic kidney disease, or unspecified chronic kidney disease; E11.22 Type 2 diabetes mellitus with diabetic chronic kidney disease; N18.9 Chronic kidney disease, unspecified; F12.10 Cannabis abuse, uncomplicated; Z79.4 Long term (current) use of insulin; Z79.899 Other long term (current) drug therapy; Z90.49 Acquired absence of other specified parts of digestive tract
CPT/HCPCS: 36415; 80053; 81001; 82962; 83690; 85025; 87086; 96361; 96374; 96375; 99283; J2270; J2405; J7030

== ENCOUNTER 2019-07-11 10:50 | Emergency (ER) | payer SELFPAY ==
--- NOTE | 2019-07-11 11:08 | Emergency Department Report ---
Blank Doc - Documentation Documentation: 43-year-old male that presents with abdominal pain and n/v. This initial assessment/diagnostic orders/clinical plan/treatment(s) is/are subject to change based on patient's health status, clinical progression and re- assessment by fellow clinical providers in the ED. Further treatment and workup at subsequent clinical providers discretion. Patient/guardians urged not to elope from the ED as their condition may be serious if not clinically assessed and managed. Initial orders include: 1- Patient sent to MAIN ED for further evaluation and treatment 2- labs 3- UA
[2019-07-11] MEDS ORDERED: SODIUM CHLORIDE 0.9% 1000 ML 1,000 ML IV ONE ×2 (12:04→19:02)
[2019-07-11 12:09] LABS: Bilirubin,Urine NEG (Negative); Blood,Urine MOD (Negative); Color,Urine Colorless (Yellow); Urobilinogen,Urine < 2.0 mg/dL (<2.0); WBC,Urine < 1.0 /HPF (0.0-6.0)
[2019-07-11] MEDS ORDERED: ONDANSETRON 4 MG/2 ML INJ ONE (12:31)
[2019-07-11 12:44] LABS: Basophils # (Auto) 0.1 K/mm3 (0.0-0.1); Basophils % (Auto) 0.5 % (0.0-1.8); Eosinophils % (Auto) 0.2 % (0.0-4.3); Hematocrit 38.2 % (35.5-45.6); Hemoglobin 12.6 gm/dl (11.8-15.2); Lymphocytes % (Auto) 9.2 % (13.4-35.0); Mean Corpuscular HGB Conc 33 % (32-34); Mean Corpuscular Volume 91 fl (84-94); Monocytes # (Auto) 0.4 K/mm3 (0.0-0.8); Monocytes % (Auto) 4.2 % (0.0-7.3); Platelet Count 168 K/mm3 (140-440); Red Blood Count 4.21 M/mm3 (3.65-5.03); Red Cell Distribution Width 15.1 % (13.2-15.2)
[2019-07-11] MEDS ORDERED: ONDANSETRON 4 MG/2 ML INJ IV ONE ×4 (12:45→20:01)
[2019-07-11 13:10] LABS: Alanine Aminotransferase 65 units/L (7-56); Albumin 4.4 g/dL (3.9-5); BUN/Creatinine Ratio 16; Blood Urea Nitrogen 21 mg/dL (9-20); Calcium 9.9 mg/dL (8.4-10.2); Hemolysis Index 4
--- NOTE | 2019-07-11 13:31 | Emergency Department Report ---
<MARISEL KIM - Last Filed: 07/11/19 13:26> ED Abdominal Pain HPI - General Chief Complaint: Abdominal Pain Stated Complaint: GASTROSCHISIS Time Seen by Provider: 07/11/19 11:07 Source: patient Mode of arrival: Ambulatory Limitations: No Limitations - History of Present Illness Initial Comments: 43-year-old -[place] male with a past medical history of diabetes and GERD hypertension and gastroparesis. Patient comes in today reporting that his gastroparesis is flaring up. Patient admits to vomiting about 10 times today. Patient reports he took his Reglan 10 mg which has not helped. Patient complains of nausea and abdominal pain. Patient reports that the abdominal pain is diffuse. Patient denies any problems with urination. Patient does admit to diarrhea. Patient denies any fever or chills chest pain does admit to abdominal pain and shortness of breath. Patient presents to the emergency room for e levated blood pressure 190/110 heart rate of 106 and respirations of 20. MD Complaint: abdominal pain -: This morning Location: diffuse Radiation: none Severity scale (0 -10): 0 - Related Data Previous Rx's Medication Instructions Recorded Last Taken Type Insulin Aspart (Nf) [Novolog] 10 units SQ BID 30 Days #10 ml 07/12/18 Unknown Rx Promethazine [Phenergan] 25 mg PO Q8HR PRN #30 tab 07/12/18 Unknown Rx Hyoscyamine Subl [Levsin Sl 0.125 0.125 mg SL Q6HR PRN #20 tab 06/07/19 Unknown Rx TAB] Ondansetron [Zofran ODT TAB] 8 mg PO Q12HR #14 tab.rapdis 06/07/19 Unknown Rx Metoclopramide [Reglan] 10 mg PO TID PRN #20 tab 06/08/19 Unknown Rx Famotidine [Pepcid] 20 mg PO BID #30 tablet 07/11/19 Unknown Rx Ketorolac [Toradol] 10 mg PO Q6H PRN #12 tablet 07/11/19 Unknown Rx Ondansetron [Zofran Odt] 4 mg PO Q8HR PRN #12 tab.rapdis 07/11/19 Unknown Rx Allergies Allergy/AdvReac Type Severity Reaction Status Date / Time No Known Allergies Allergy Verified 06/07/19 15:18 ED Past Medical Hx - Past Medical History Previous Medical History?: Yes Hx Hypertension: Yes (noncompliant) Hx Congestive Heart Failure: No Hx Diabetes: Yes Hx GERD: Yes Hx Renal Disease: Yes Hx Asthma: No Hx COPD: No Hx HIV: No Additional medical history: Gastroparesis - Surgical History Past Surgical History?: Yes Hx Cholecystectomy: Yes Additional Surgical History: right foot - Social History Smoking Status: Never Smoker Substance Use Type: Marijuana - Medications Home Medications: Home Medications Medication Instructions Recorded Confirmed Last Taken Type Insulin Aspart (Nf) [Novolog] 10 units SQ BID 30 Days #10 ml 07/12/18 Unknown Rx Promethazine [Phenergan] 25 mg PO Q8HR PRN #30 tab 07/12/18 Unknown Rx Hyoscyamine Subl [Levsin Sl 0.125 0.125 mg SL Q6HR PRN #20 tab 06/07/19 Unknown Rx TAB] Ondansetron [Zofran ODT TAB] 8 mg PO Q12HR #14 tab.rapdis 06/07/19 Unknown Rx Metoclopramide [Reglan] 10 mg PO TID PRN #20 tab 06/08/19 Unknown Rx Famotidine [Pepcid] 20 mg PO BID #30 tablet 07/11/19 Unknown Rx Ketorolac [Toradol] 10 mg PO Q6H PRN #12 tablet 07/11/19 Unknown Rx Ondansetron [Zofran Odt] 4 mg PO Q8HR PRN #12 tab.rapdis 07/11/19 Unknown Rx ED Physical Exam - General Limitations: No Limitations ED Medical Decision Making - Lab Data Result diagrams: 07/11/19 11:44 07/11/19 11:44 - Medical Decision Making 43-year-old -[place] male with a past medical history of diabetes and GERD hypertension and gastroparesis. Patient comes in today reporting that his gastroparesis is flaring up. Patient admits to vomiting about 10 times today. Patient reports he took his Reglan 10 mg which has not helped. Patient complains of nausea and abdominal pain. Patient reports that the abdominal pain is diffuse. Patient denies any problems with urination. Patient does admit to diarrhea. Patient denies any fever or chills chest pain does admit to abdominal pain and shortness of breath. Patient presents to the emergency room for elevated blood pressure 190/110 heart rate of 106 and respirations of 20. ED Disposition Clinical Impression: Renal stone, Marijuana abuse, Dehydration, Mild dehydration Nausea & vomiting Qualifiers: Vomiting type: unspecified Vomiting Intractability: non-intractable Qualified Code(s): R11.2 - Nausea with vomiting, unspecified Disposition: DC-01 TO HOME OR SELFCARE Condition: Stable Instructions: Dehydration (ED), Acute Nausea and Vomiting (ED) Prescriptions: Famotidine [Pepcid] 20 mg PO BID #30 tablet Ketorolac [Toradol] 10 mg PO Q6H PRN #12 tablet PRN Reason: Pain Ondansetron [Zofran Odt] 4 mg PO Q8HR PRN #12 tab.rapdis PRN Reason: nausea and vomiting Referrals: [facility] [Outside] - 3-5 Days <SALMA CARTER - Last Filed: 07/11/19 21:42> ED Review of Systems ROS: Stated complaint: GASTROSCHISIS Other details as noted in HPI ED Physical Exam - General General appearance: alert, in no apparent distress - Head Head exam: Present: atraumatic, normocephalic - ENT ENT exam: Present: mucous membranes moist - Neck Neck exam: Present: normal inspection, full ROM. Absent: tenderness - Respiratory Respiratory exam: Present: normal lung sounds bilaterally. Absent: respiratory distress, wheezes, rhonchi, chest wall tenderness - Cardiovascular Cardiovascular Exam: Present: regular rate, normal rhythm, normal heart sounds. Absent: systolic murmur, diastolic murmur, rubs, gallop - GI/Abdominal GI/Abdominal exam: Present: soft, normal bowel sounds. Absent: tenderness, rebound - Rectal Rectal exam: Present: deferred - Extremities Exam Extremities exam: Present: normal inspection - Back Exam Back exam: Present: normal inspection - Neurological Exam Neurological exam: Present: alert, oriented X3, CN II-XII intact, normal gait, reflexes normal. Absent: motor sensory deficit - Psychiatric Psychiatric exam: Present: normal affect, normal mood, anxious - Skin Skin exam: Present: warm, dry, intact, normal color. Absent: rash ED Course Vital Signs 07/11/19 07/11/19 07/11/19 11:02 12:21 12:30 Temperature 97.9 F Pulse Rate 106 H 88 103 H Respiratory 20 21 12 Rate Blood Pressure 190/110 182/120 Blood Pressure [Left] O2 Sat by Pulse 97 Oximetry 07/11/19 07/11/19 07/11/19 12:38 12:45 13:00 Temperature Pulse Rate 107 H Respiratory 16 10 L Rate Blood Pressure 191/115 179/112 Blood Pressure [Left] O2 Sat by Pulse 100 100 Oximetry 07/11/19 07/11/19 07/11/19 13:20 13:30 14:00 Temperature Pulse Rate Respiratory Rate Blood Pressure 179/112 198/115 215/116 Blood Pressure [Left] O2 Sat by Pulse 98 99 99 Oximetry 07/11/19 07/11/19 07/11/19 14:31 14:52 15:00 Temperature Pulse Rate 120 H Respiratory Rate Blood Pressure 207/115 207/115 216/126 Blood Pressure [Left] O2 Sat by Pulse 96 Oximetry 07/11/19 07/11/19 07/11/19 15:30 15:48 16:00 Temperature Pulse Rate 102 H Respiratory Rate Blood Pressure 193/114 175/105 Blood Pressure [Left] O2 Sat by Pulse 97 98 Oximetry 07/11/19 07/11/19 07/11/19 16:03 16:42 17:00 Temperature Pulse Rate 112 H Respiratory Rate Blood Pressure 175/105 186/111 199/111 Blood Pressure [Left] O2 Sat by Pulse 96 Oximetry 07/11/19 07/11/19 07/11/19 17:30 18:00 18:30 Temperature Pulse Rate Respiratory Rate Blood Pressure 186/111 183/118 182/110 Blood Pressure [Left] O2 Sat by Pulse 99 96 Oximetry 07/11/19 07/11/19 19:40 20:16 Temperature 99.5 F Pulse Rate 115 H Respiratory 18 18 Rate Blood Pressure Blood Pressure 185/146 [Left] O2 Sat by Pulse 99 Oximetry ED Medical Decision Making - Lab Data Result diagrams: 07/11/19 11:44 07/11/19 11:44 - Radiology Data Radiology results: report reviewed, image reviewed Ordering Physician: SALMA CARTER NP Date of Service: 07/11/19 Procedure(s): CT abdomen pelvis wo con Accession Number(s): [id number] cc: SALMA CARTER NP CT abdomen pelvis wo con INDICATION / CLINICAL INFORMATION: abd pain. TECHNIQUE: All CT scans at this location are performed using CT dose reduction for ALARA by means of automated exposure control. COMPARISON: 06/07/2019 FINDINGS: One scan the distal esophagus is mildly thickened which is nonspecific. There is moderate distention of the stomach unchanged. No free fluid is seen in the abdomen. The g allbladder has been surgically removed. The liver, spleen, left kidney, pancreas, adrenal glands and great vessels are normal. A tiny stone is seen in the right kidney. In the pelvis, no free fluid is seen. No enlarged lymph nodes are identified. The bladder and the appendix are normal. IMPRESSION: 1. Mild nonspecific thickening of the distal esophagus unchanged from 06/07/2019 2. Moderate distention of the stomach unchanged from the prior study 3. Overall no interval change from prior study Signer Name: Walter Mcintosh MD FACR Signed: 07/11/2019 8:14 PM Workstation Name: [id number] Transcribed By: MS Dictated By: Walter Mcintosh MD Electronically Authenticated By: Walter Mcintosh MD Signed Date/Time: 07/11/192013 DD/ 10 TD/TT: - Medical Decision Making ct abd pelvis , small left renal stone, no hydronephrosis, pt is currently to lerating po intake without n/v plan: dc to home ,continue to rehydrate Critical care attestation.: If time is entered above; I have spent that time in minutes in the direct care of this critically ill patient, excluding procedure time. ED Disposition Is pt being admited?: No Does the pt Need Aspirin: No Time of Disposition: 21:37
[2019-07-11] MEDS ORDERED: DICYCLOMINE 20 MG/2 ML INJ IM ONE (13:47)
[2019-07-11] MEDS ORDERED: DICYCLOMINE 10 MG/5 ML ORAL LIQD PO SCH (14:00)
[2019-07-11] MEDS ORDERED: METOCLOPRAMIDE 10 MG/2 ML INJ IV ONE (14:37)
[2019-07-11] MEDS ORDERED: MORPHINE 4 MG/1 ML INJ IV ONE ×2 (17:29→20:01)
--- NOTE | 2019-07-11 20:19 | Cat Scan Report ---
CT abdomen pelvis wo con INDICATION / CLINICAL INFORMATION: abd pain. TECHNIQUE: All CT scans at this location are performed using CT dose reduction for ALARA by means of automated e xposure control. COMPARISON: 06/07/2019 FINDINGS: One scan the distal esophagus is mildly thickened which is nonspecific. There is moderate distention of the stomach unchanged. No free fluid is seen in the abdomen. The gallbladder has been surgically r emoved. The liver, spleen, left kidney, pancreas, adrenal glands and great vessels are normal. A tiny stone is seen in the right kidney. In the pelvis, no free fluid is seen. No enlarged lymph nodes are identified. The bladder and the rasheed endix are normal. IMPRESSION: 1. Mild nonspecific thickening of the distal esophagus unchanged from 06/07/2019 2. Moderate distention of the stomach unchanged from the prior study 3. Overall no interval change from prior study Signer Name: Walter Mcintosh MD FACR Signed: 07/11/2019 8:14 PM Workstation Name: [id number]
[2019-07-11] MEDS ORDERED: hydrALAZINE 20 MG/1 ML INJ IV ONE (21:25)
[2019-07-11] MEDS ORDERED: KETOROLAC 30 MG/1 ML INJ IV ONE ×2 (21:26→21:39)
[2019-07-11 22:42] VITALS: BP 189/104
== END 2019-07-11 22:40 | disposition home or self-care (01) ==
LOC: ED 10:50
DX: N20.0 Calculus of kidney (principal); E86.0 Dehydration; F12.10 Cannabis abuse, uncomplicated; I10 Essential (primary) hypertension; E11.43 Type 2 diabetes mellitus with diabetic autonomic (poly)neuropathy; K31.84 Gastroparesis; Z91.14 Patient's other noncompliance with medication regimen; Z90.49 Acquired absence of other specified parts of digestive tract; Z79.899 Other long term (current) drug therapy
CPT/HCPCS: 36415; 74176; 80053; 81001; 82962; 83690; 85025; 96361; 96372; 96374; 96375; 96376; 99284; J0500; J1885; J2270; J2405; J2765; J7030

== ENCOUNTER 2019-08-15 11:39 | Emergency (ER) | payer SELFPAY ==
--- NOTE | 2019-08-15 11:44 | Emergency Department Report ---
Blank Doc - Documentation Documentation: This is a 43-year-old male that presents with abdominal pain with n/v. This initial assessment/diagnostic orders/clinical plan/treatment(s) is/are subject to change based on patient's health status, clinical progression and re- assessment by fellow clinical providers in the ED. Further treatment and workup at subsequent clinical providers discretion. Patient/guardians urged not to elope from the ED as their condition may be serious if not clinically assessed and managed. Initial orders include: 1- Patient sent to [facility] for further evaluation and treatment 2- labs 3- UA
[2019-08-15] MEDS ORDERED: FAMOTIDINE 20 MG/2 ML INJ IV ONE (13:40)
[2019-08-15] MEDS ORDERED: KETOROLAC 30 MG/1 ML INJ IV ONE (13:40)
[2019-08-15] MEDS ORDERED: SODIUM CHLORIDE 0.9% 1000 ML 1,000 ML IV ONE (13:40)
[2019-08-15] MEDS ORDERED: ONDANSETRON 4 MG/2 ML INJ IV ONE (13:40)
[2019-08-15] MEDS ORDERED: DICYCLOMINE 10 MG/5 ML ORAL LIQD PO ONE (13:45)
--- NOTE | 2019-08-15 13:46 | Emergency Department Report ---
ED Abdominal Pain HPI - General Chief Complaint: Abdominal Pain Stated Complaint: GASTRITIS Time Seen by Provider: 08/15/19 11:43 Source: patient Mode of arrival: Ambulatory Limitations: No Limitations - History of Present Illness Initial Comments: 43-year-old -[place] male with a past medical history of diabetes and GERD hypertension and gastroparesis. Patient comes in today reporting that his gastroparesis is flaring up. Patient admits to vomiting several times today. Patient complains of nausea and abdominal pain. Patient reports that the abdominal pain is diffuse. Patient denies any urinary symptoms or diarrhea Patient denies any fever or chills chest pain , shortness of breath. MD Complaint: abdominal pain - Related Data Previous Rx's Medication Instructions Recorded Last Taken Type Insulin Aspart (Nf) [Novolog] 10 units SQ BID 30 Days #10 ml 07/12/18 Unknown Rx Hyoscyamine Subl [Levsin Sl 0.125 0.125 mg SL Q6HR PRN #20 tab 06/07/19 Unknown Rx TAB] Ondansetron [Zofran ODT TAB] 8 mg PO Q12HR #14 tab.rapdis 06/07/19 Unknown Rx Metoclopramide [Reglan] 10 mg PO TID PRN #20 tab 06/08/19 Unknown Rx Famotidine [Pepcid] 20 mg PO BID #30 tablet 07/11/19 Unknown Rx Ketorolac [Toradol] 10 mg PO Q6H PRN #12 tablet 07/11/19 Unknown Rx Ondansetron [Zofran Odt] 4 mg PO Q8HR PRN #12 tab.rapdis 07/11/19 Unknown Rx Dicyclomine [Bentyl] 20 mg PO BID #20 tablet 08/15/19 Unknown Rx Promethazine [Phenergan] 25 mg PO Q8HR PRN #30 tab 08/15/19 Unknown Rx Allergies Allergy/AdvReac Type Severity Reaction Status Date / Time No Known Allergies Allergy Verified 06/07/19 15:18 ED Review of Systems ROS: Stated complaint: GASTRITIS Other details as noted in HPI Comment: All other systems reviewed and negative ED Past Medical Hx - Past Medical History Previous Medical History?: Yes Hx Hypertension: Yes (noncompliant) Hx Congestive Heart Failure: No Hx Diabetes: Yes Hx GERD: Yes Hx Renal Disease: Yes Hx Asthma: No Hx COPD: No Hx HIV: No Additional medical history: Gastroparesis - Surgical History Past Surgical History?: Yes Hx Cholecystectomy: Yes Additional Surgical History: right foot - Social History Smoking Status: Never Smoker Substance Use Type: None - Medications Home Medications: Home Medications Medication Instructions Recorded Confirmed Last Taken Type Insulin Aspart (Nf) [Novolog] 10 units SQ BID 30 Days #10 ml 07/12/18 Unknown Rx Hyoscyamine Subl [Levsin Sl 0.125 0.125 mg SL Q6HR PRN #20 tab 06/07/19 Unknown Rx TAB] Ondansetron [Zofran ODT TAB] 8 mg PO Q12HR #14 tab.rapdis 06/07/19 Unknown Rx Metoclopramide [Reglan] 10 mg PO TID PRN #20 tab 06/08/19 Unknown Rx Famotidine [Pepcid] 20 mg PO BID #30 tablet 07/11/19 Unknown Rx Ketorolac [Toradol] 10 mg PO Q6H PRN #12 tablet 07/11/19 Unknown Rx Ondansetron [Zofran Odt] 4 mg PO Q8HR PRN #12 tab.rapdis 07/11/19 Unknown Rx Dicyclomine [Bentyl] 20 mg PO BID #20 tablet 08/15/19 Unknown Rx Promethazine [Phenergan] 25 mg PO Q8HR PRN #30 tab 08/15/19 Unknown Rx ED Physical Exam - General Limitations: No Limitations General appearance: alert, in no apparent distress - Head Head exam: Present: atraumatic, normocephalic - Eye Eye exam: Present: normal appearance - ENT ENT exam: Present: mucous membranes moist - Neck Neck exam: Present: normal inspection - Respiratory Respiratory exam: Present: normal lung sounds bilaterally. Absent: respiratory distress - Cardiovascular Cardiovascular Exam: Present: regular rate, normal rhythm. Absent: systolic murmur, diastolic murmur, rubs, gallop - GI/Abdominal GI/Abdominal exam: Present: soft, normal bowel sounds - Rectal Rectal exam: Present: deferred - Extremities Exam Extremities exam: Present: normal inspection - Back Exam Back exam: Present: normal inspection - Neurological Exam Neurological exam: Present: alert, oriented X3 - Psychiatric Psychiatric exam: Present: normal affect, normal mood - Skin Skin exam: Present: warm, dry, intact, normal color. Absent: rash ED Course Vital Signs 0108/15/19 08/15/19 11:43 16:57 17:05 Temperature 97.9 F 98.8 F Pulse Rate 110 H 112 H 112 H Respiratory 16 20 Rate Blood Pressure 216/125 197/111 Blood Pressure 197/111 [Right] O2 Sat by Pulse 100 100 Oximetry ED Medical Decision Making - Lab Data Result diagrams: 08/15/19 13:29 08/15/19 13:29 Laboratory Last Values WBC 12.9 K/mm3 (4.5-11.0) H 08/15/19 13:29 RBC 4.05 M/mm3 (3.65-5.03) 08/15/19 13:29 Hgb 12.2 gm/dl (11.8-15.2) 08/15/19 13:29 Hct 36.5 % (35.5-45.6) 08/15/19 13:29 MCV 90 fl (84-94) 08/15/19 13:29 MCH 30 pg (28-32) 08/15/19 13:29 MCHC 34 % (32-34) 08/15/19 13:29 RDW 14.6 % (13.2-15.2) 08/15/19 13:29 Plt Count 208 K/mm3 (140-440) 08/15/19 13:29 Lymph % (Auto) 8.3 % (13.4-35.0) L 08/15/19 13:29 [place] % (Auto) 2.7 % (0.0-7.3) 08/15/19 13:29 Eos % (Auto) 0.0 % (0.0-4.3) 08/15/19 13:29 Baso % (Auto) 0.8 % (0.0-1.8) 08/15/19 13:29 Lymph # 1.1 K/mm3 (1.2-5.4) L 08/15/19 13:29 [place] # 0.3 K/mm3 (0.0-0.8) 08/15/19 13:29 Eos # 0.0 K/mm3 (0.0-0.4) 08/15/19 13:29 Baso # 0.1 K/mm3 (0.0-0.1) 08/15/19 13:29 Seg Neutrophils % 88.2 % (40.0-70.0) H 08/15/19 13:29 Seg Neutrophils # 11.4 K/mm3 (1.8-7.7) H 08/15/19 13:29 Sodium 136 mmol/L (137-145) L 08/15/19 13:29 Potassium 5.0 mmol/L (3.6-5.0) 08/15/19 13:29 Chloride 99.9 mmol/L (98-107) 08/15/19 13:29 Carbon Dioxide 21 mmol/L (22-30) L 08/15/19 13:29 Anion Gap 20 mmol/L 08/15/19 13:29 BUN 26 mg/dL (9-20) H 08/15/19 13:29 Creatinine 1.4 mg/dL (0.8-1.5) 08/15/19 13:29 Estimated GFR > 60 ml/min 08/15/19 13:29 BUN/Creatinine Ratio 19 % 08/15/19 13:29 Glucose 411 mg/dL (75-100) H 08/15/19 13:29 Calcium 10.3 mg/dL (8.4-10.2) H 08/15/19 13:29 Total Bilirubin 0.40 mg/dL (0.1-1.2) 08/15/19 13:29 AST 25 units/L (5-40) 08/15/19 13:29 ALT 33 units/L (7-56) 08/15/19 13:29 Alkaline Phosphatase 151 units/L (35-129) H 08/15/19 13:29 Total Protein 8.5 g/dL (6.3-8.2) H 08/15/19 13:29 Albumin 4.4 g/dL (3.9-5) 08/15/19 13:29 Albumin/Globulin Ratio 1.1 % 08/15/19 13:29 Lipase 29 units/L (13-60) 08/15/19 13:29 Urine Color Straw (Yellow) 08/15/19 15:03 Urine Turbidity Clear (Clear) 08/15/19 15:03 Urine pH 6.0 (5.0-7.0) 08/15/19 15:03 Ur Specific Maxwell 1.015 (1.003-1.030) 08/15/19 15:03 Urine Protein 100 mg/dl mg/dL (Negative) 08/15/19 15:03 Urine Glucose (UA) >=500 mg/dL (Negative) 08/15/19 15:03 Urine Ketones Tr mg/dL (Negative) 08/15/19 15:03 Urine Blood Mod (Negative) 08/15/19 15:03 Urine Nitrite Neg (Negative) 08/15/19 15:03 Urine Bilirubin Neg (Negative) 08/15/19 15:03 Urine Urobilinogen < 2.0 mg/dL (<2.0) 08/15/19 15:03 Ur Leukocyte Esterase Neg (Negative) 08/15/19 15:03 Urine WBC (Auto) 1.0 /HPF (0.0-6.0) 08/15/19 15:03 Urine RBC (Auto) 24.0 /HPF (0.0-6.0) 08/15/19 15:03 U Epithel Cells (Auto) < 1.0 /HPF (0-13.0) 08/15/19 15:03 - Medical Decision Making 43-year-old female with a history of gastroparesis presents for abdominal pain Review his CT scan from 07/11/2019 with each results are unchanged from CT scan that was completed in 06/07/2019. Due to the fact that the patient is not have any new or worsening symptoms CT scan is not indicated. She has a clear history of gastroparesis and is being treated in the ED today. Patient received fluids, pain medications She received insulin 10 units in the ED to reduce blood glucose, patient also received clonidine in the ED for blood pressure control. Discussed the patient to follow-up with stator connector as far as well as his primary care physician for blood pressure control. Patient is resting comfortably in the ED chair in no acute distress no active or acute vomiting noted. Critical care attestation.: If time is entered above; I have spent that time in minutes in the direct care of this critically ill patient, excluding procedure time. ED Disposition Clinical Impression: Gastroparesis, Hypertension Disposition: - TO HOME OR SELFCARE Is pt being admited?: No Does the pt Need Aspirin: No Condition: Stable Instructions: Acute Nausea and Vomiting (ED), Hypertension (ED) Additional Instructions: Make sure to follow up with the primary care physician as discussed. Take all your medications as you've been prescribed. If you have any worsening symptoms or develop new symptoms please return to ED immediately. Prescriptions: Dicyclomine [Bentyl] 20 mg PO BID #20 tablet Promethazine [Phenergan] 25 mg PO Q8HR PRN #30 tab PRN Reason: Nausea Referrals: PRIMARY CARE,MD [Primary Care Provider] - 3-5 Days [facility] [Provider Group] - 3-5 Days [facility] [Provider Group] - 3-5 Days Forms: Accompanied Note, Work/School Release Form(ED) Time of Disposition: 17:38
[2019-08-15 13:55] LABS: Basophils # (Auto) 0.1 K/mm3 (0.0-0.1); Basophils % (Auto) 0.8 % (0.0-1.8); Hematocrit 36.5 % (35.5-45.6); Hemoglobin 12.2 gm/dl (11.8-15.2); Lymphocytes # (Auto) 1.1 K/mm3 (1.2-5.4); Lymphocytes % (Auto) 8.3 % (13.4-35.0); Mean Corpuscular HGB Conc 34 % (32-34); Mean Corpuscular Volume 90 fl (84-94); Monocytes # (Auto) 0.3 K/mm3 (0.0-0.8); Monocytes % (Auto) 2.7 % (0.0-7.3); Platelet Count 208 K/mm3 (140-440); Red Blood Count 4.05 M/mm3 (3.65-5.03); Red Cell Distribution Width 14.6 % (13.2-15.2)
[2019-08-15 14:16] LABS: Alanine Aminotransferase 33 units/L (7-56); Albumin 4.4 g/dL (3.9-5); BUN/Creatinine Ratio 19; Blood Urea Nitrogen 26 mg/dL (9-20); Calcium 10.3 mg/dL (8.4-10.2); Hemolysis Index 15
[2019-08-15] MEDS ORDERED: METOCLOPRAMIDE 10 MG/2 ML INJ IV ONE (14:26)
[2019-08-15 15:47] LABS: Bilirubin,Urine NEG (Negative); Blood,Urine MOD (Negative); Color,Urine Straw (Yellow); Urobilinogen,Urine < 2.0 mg/dL (<2.0)
[2019-08-15] MEDS ORDERED: INSULIN REGULAR, HUMAN 100 UNITS/1 ML IV ONE (15:58)
[2019-08-15] MEDS ORDERED: cloNIDine 0.2 MG TAB PO ONE (17:02)
[2019-08-15] MEDS ORDERED: cloNIDine 0.2 MG TAB ONE (17:04)
[2019-08-15] MEDS ORDERED: ONDANSETRON 4 MG/2 ML INJ ONE (17:08)
[2019-08-15 18:01] VITALS: BP 186/111
== END 2019-08-15 18:00 | disposition home or self-care (01) ==
LOC: ED 11:39
DX: K31.84 Gastroparesis (principal); I10 Essential (primary) hypertension; E11.9 Type 2 diabetes mellitus without complications; K21.9 Gastro-esophageal reflux disease without esophagitis; Z90.49 Acquired absence of other specified parts of digestive tract; Z79.4 Long term (current) use of insulin; Z79.899 Other long term (current) drug therapy
CPT/HCPCS: 36415; 80053; 81001; 82962; 83690; 85025; 96361; 96374; 96375; 99284; J1885; J2405; J2765; J7030; J1815

== ENCOUNTER 2019-09-20 09:17 | Emergency (ER) | payer SELFPAY ==
--- NOTE | 2019-09-20 13:28 | Emergency Department Report ---
Abscess Boil HPI - HPI Chief Complaint: Skin/Abscess/Foreign Body Stated Complaint: BOIL ON BUTT Time Seen by Provider: 09/20/19 12:29 Duration: 1 Day Location: Perianal Severity: Moderate History: Yes Pain, No Fever, No Purulent Drainage, No Numbness, No Foreign Body, No Previous History, No Insect Bite HPI: This is a 43-year-old -[place] male who presents to the emergency room with a painful abscess to the left inner buttock for 1 day. Past medical history of diabetes type 2, hypertension, GERD, and gastroparesis. Patient states he is taking insulin. He denies drainage. He admits to history of recurrent abscess. Home Medications: Previous Rx's Medication Instructions Recorded Last Taken Type Insulin Aspart (Nf) [Novolog] 10 units SQ BID 30 Days #10 ml 07/12/18 Unknown Rx Hyoscyamine Subl [Levsin Sl 0.125 0.125 mg SL Q6HR PRN #20 tab 06/07/19 Unknown Rx TAB] Ondansetron [Zofran ODT TAB] 8 mg PO Q12HR #14 tab.rapdis 06/07/19 Unknown Rx Metoclopramide [Reglan] 10 mg PO TID PRN #20 tab 06/08/19 Unknown Rx Famotidine [Pepcid] 20 mg PO BID #30 tablet 07/11/19 Unknown Rx Ketorolac [Toradol] 10 mg PO Q6H PRN #12 tablet 07/11/19 Unknown Rx Ondansetron [Zofran Odt] 4 mg PO Q8HR PRN #12 tab.rapdis 07/11/19 Unknown Rx Dicyclomine [Bentyl] 20 mg PO BID #20 tablet 08/15/19 Unknown Rx Promethazine [Phenergan] 25 mg PO Q8HR PRN #30 tab 08/15/19 Unknown Rx amLODIPine 10 mg PO DAILY #40 tab 08/15/19 Unknown Rx Sulfamethoxazole/Trimethoprim 1 each PO BID #20 tablet 09/20/19 Unknown Rx [Bactrim DS TAB] traMADoL [Ultram 50 MG tab] 50 mg PO Q6HR PRN #12 tablet 09/20/19 Unknown Rx Allergies/Adverse Reactions: Allergies Allergy/AdvReac Type Severity Reaction Status Date / Time No Known Allergies Allergy Verified 09/20/19 09:46 ED Review of Systems ROS: Stated complaint: BOIL ON BUTT Other details as noted in HPI Constitutional: denies: chills, fever Respiratory: denies: cough, shortness of breath, wheezing Cardiovascular: denies: chest pain, palpitations Gastrointestinal: denies: abdominal pain, nausea, diarrhea Skin: lesions (Painful abscess to left buttocks). denies: rash Neurological: denies: headache, weakness, paresthesias Psychiatric: denies: anxiety, depression ED Past Medical Hx - Past Medical History Previous Medical History?: Yes Hx Hypertension: Yes (noncompliant) Hx Congestive Heart Failure: No Hx Diabetes: Yes Hx GERD: Yes Hx Renal Disease: Yes Hx Asthma: No Hx COPD: No Hx HIV: No Additional medical history: Gastroparesis - Surgical History Past Surgical History?: Yes Hx Cholecystectomy: Yes Additional Surgical History: right foot - Social History Smoking Status: Never Smoker Substance Use Type: Marijuana - Medications Home Medications: Home Medications Medication Instructions Recorded Confirmed Last Taken Type Insulin Aspart (Nf) [Novolog] 10 units SQ BID 30 Days #10 ml 07/12/18 Unknown Rx Hyoscyamine Subl [Levsin Sl 0.125 0.125 mg SL Q6HR PRN #20 tab 06/07/19 Unknown Rx TAB] Ondansetron [Zofran ODT TAB] 8 mg PO Q12HR #14 tab.rapdis 06/07/19 Unknown Rx Metoclopramide [Reglan] 10 mg PO TID PRN #20 tab 06/08/19 Unknown Rx Famotidine [Pepcid] 20 mg PO BID #30 tablet 07/11/19 Unknown Rx Ketorolac [Toradol] 10 mg PO Q6H PRN #12 tablet 07/11/19 Unknown Rx Ondansetron [Zofran Odt] 4 mg PO Q8HR PRN #12 tab.rapdis 07/11/19 Unknown Rx Dicyclomine [Bentyl] 20 mg PO BID #20 tablet 08/15/19 Unknown Rx Promethazine [Phenergan] 25 mg PO Q8HR PRN #30 tab 08/15/19 Unknown Rx amLODIPine 10 mg PO DAILY #40 tab 08/15/19 Unknown Rx Sulfamethoxazole/Trimethoprim 1 each PO BID #20 tablet 09/20/19 Unknown Rx [Bactrim DS TAB] traMADoL [Ultram 50 MG tab] 50 mg PO Q6HR PRN #12 tablet 09/20/19 Unknown Rx ED Abscess Boil Physical Exam - Exam General: Vital signs noted. No distress. Alert and acting appropriately. Front/Back of Body, Lg (Color): 1 - 1 cm nonfluctuant abscess to left medial buttocks, TTP, no erythema, no drainage Size: 1 cm Exam: Yes Tenderness, Yes Normal Neurologic Exam, Yes Normal Circulation, No Fluctuance, No Surrounding Cellulites/Erythema, No Lymphangitis, No Crepitation, No Heart Murmur ED Course Vital Signs 09/20/19 09:47 Temperature 99.4 F Pulse Rate 112 H Respiratory 18 Rate Blood Pressure 117/74 [Right] O2 Sat by Pulse 100 Oximetry Vital Signs 09/20/19 09/20/19 09:47 13:42 Temperature 99.4 F 98.6 F Pulse Rate 112 H 104 H Respiratory 18 18 Rate Blood Pressure 117/74 167/102 [Right] O2 Sat by Pulse 100 100 Oximetry Critical care attestation.: If time is entered above; I have spent that time in minutes in the direct care of this critically ill patient, excluding procedure time. ED Medical Decision Making - Medical Decision Making This is a 43 y.o. male that presents with a painful abscess to left medial buttocks. Past medical history of diabetes type 2, hypertension, GERD, gastroparesis. Prior history of multiple abscess. Patient is stable and ex amined by me. No acute signs of distress noted. There is a 1 cm nonfluctuant area to left medial proximal buttocks, TTP, no drainage, and no erythema. It is not indicated for I&D at this time. Start analgesics and antibiotics. Educated patient on follow up plan to have wound reassessed in 2-3 days by his primary care doctor. Patient agrees to ED plan of care. Discharged home and follow up with PCP in 2-3 days. ED Disposition Clinical Impression: Abscess of buttock, left Disposition: - TO HOME OR SELFCARE Is pt being admited?: No Condition: Stable Instructions: Abscess (ED) Additional Instructions: Have your wound reevaluated by your primary care doctor in 2 to 3 days. Complete full round of bactrim DS antibiotic as prescribed. Follow up with primary care doctor or emergency room in 2-3 days. Return to ER if foul smelling discharge, swelling, or severe pain to wound. Prescriptions: Sulfamethoxazole/Trimethoprim [Bactrim DS TAB] 1 each PO BID #20 tablet traMADoL [Ultram 50 MG tab] 50 mg PO Q6HR PRN #12 tablet PRN Reason: Pain Referrals: RAFA VILLEGAS MD [Staff Physician] - 3-5 Days [facility] [Provider Group] - 3-5 Days [facility] [Outside] - 3-5 Days [facility] [place] [Outside] - 3-5 Days Forms: Work/School Release Form(ED) Time of Disposition: 13:28
[2019-09-20 13:44] VITALS: BP 167/102
== END 2019-09-20 13:48 | disposition home or self-care (01) ==
LOC: ED 09:17
DX: L02.31 Cutaneous abscess of buttock (principal); I10 Essential (primary) hypertension; E11.9 Type 2 diabetes mellitus without complications; K21.9 Gastro-esophageal reflux disease without esophagitis; F12.10 Cannabis abuse, uncomplicated; Z79.899 Other long term (current) drug therapy; Z79.4 Long term (current) use of insulin
CPT/HCPCS: 82962; 99282

== ENCOUNTER 2021-11-20 19:22 | Emergency (ER) | payer SELFPAY ==
[2021-11-21] MEDS ORDERED: SODIUM CHLORIDE 0.9% IRR 500 ML BOTTLE IR ONE (09:48)
[2021-11-21] MEDS ORDERED: oxyCODONE /ACETAMINOPHEN 5-325MG TAB PO ONE (09:48)
[2021-11-21] MEDS ORDERED: SODIUM CHLORIDE IRRI 500 ML 1,000 ML IR ONE (09:49)
--- NOTE | 2021-11-21 09:50 | Emergency Department Report ---
ED General Adult HPI - General Chief complaint: Wound/Laceration Stated complaint: HOLE IN FOOT Time Seen by Provider: 11/21/21 09:15 Source: patient, RN notes reviewed, old records reviewed Mode of arrival: Ambulatory Limitations: No Limitations - History of Present Illness Initial comments: The patient is a pleasant 46-year-old gentleman who presents to the ER today with complaint of chronic wound to his right lateral foot. He denies additional injuries and complaints. He states that he is following up typically at [facility]. He also reports he does not need refills on medications. He has mild chronic pain at the foot. Denies fever, chills, nausea, vomiting, diarrhea, chest pain, abdominal pain, shortness of breath. He reports that he is taking care of the wound himself. He does not have home wound care that he is aware of. He also reports that he was recently incarcerated, and is now seeking to establish care for his chronic right foot wound. -: month(s) Location: right, lower extremity Consistency: constant Improves with: none Worsens with: none - Related Data Previous Rx's Medication Instructions Recorded Last Taken Type Insulin Aspart (Nf) [Novolog] 10 units SQ BID 30 Days #10 ml 07/12/18 Unknown Rx Hyoscyamine Subl [Levsin Sl 0.125 0.125 mg SL Q6HR PRN #20 tab 06/07/19 Unknown Rx TAB] Ondansetron [Zofran ODT TAB] 8 mg PO Q12HR #14 tab.rapdis 06/07/19 Unknown Rx Metoclopramide [Reglan] 10 mg PO TID PRN #20 tab 06/08/19 Unknown Rx Famotidine [Pepcid] 20 mg PO BID #30 tablet 07/11/19 Unknown Rx Ketorolac [Toradol] 10 mg PO Q6H PRN #12 tablet 07/11/19 Unknown Rx Ondansetron [Zofran Odt] 4 mg PO Q8HR PRN #12 tab.rapdis 07/11/19 Unknown Rx Dicyclomine [Bentyl] 20 mg PO BID #20 tablet 08/15/19 Unknown Rx Promethazine [Phenergan] 25 mg PO Q8HR PRN #30 tab 08/15/19 Unknown Rx amLODIPine 10 mg PO DAILY #40 tab 08/15/19 Unknown Rx Sulfamethoxazole/Trimethoprim 1 each PO BID #20 tablet 09/20/19 Unknown Rx [Bactrim DS TAB] traMADoL [Ultram 50 MG tab] 50 mg PO Q6HR PRN #12 tablet 09/20/19 Unknown Rx Allergies Allergy/AdvReac Type Severity Reaction Status Date / Time No Known Allergies Allergy Verified 09/20/19 09:46 ED Review of Systems ROS: Stated complaint: HOLE IN FOOT Other details as noted in HPI Constitutional: denies: fever Eyes: denies: eye discharge ENT: denies: epistaxis Respiratory: denies: cough Cardiovascular: denies: chest pain Gastrointestinal: denies: abdominal pain Skin: as per HPI Neurological: denies: weakness ED Past Medical Hx - Past Medical History Hx Hypertension: Yes (noncompliant) Hx Congestive Heart Failure: No Hx Diabetes: Yes Hx GERD: Yes Hx Renal Disease: Yes Hx Asthma: No Hx COPD: No Hx HIV: No Additional medical history: Gastroparesis - Surgical History Hx Cholecystectomy: Yes Additional Surgical History: right foot - Social History Smoking Status: Never Smoker - Medications Home Medications: Home Medications Medication Instructions Recorded Confirmed Last Taken Type Insulin Aspart (Nf) [Novolog] 10 units SQ BID 30 Days #10 ml 07/12/18 Unknown Rx Hyoscyamine Subl [Levsin Sl 0.125 0.125 mg SL Q6HR PRN #20 tab 06/07/19 Unknown Rx TAB] Ondansetron [Zofran ODT TAB] 8 mg PO Q12HR #14 tab.rapdis 06/07/19 Unknown Rx Metoclopramide [Reglan] 10 mg PO TID PRN #20 tab 06/08/19 Unknown Rx Famotidine [Pepcid] 20 mg PO BID #30 tablet 07/11/19 Unknown Rx Ketorolac [Toradol] 10 mg PO Q6H PRN #12 tablet 07/11/19 Unknown Rx Ondansetron [Zofran Odt] 4 mg PO Q8HR PRN #12 tab.rapdis 07/11/19 Unknown Rx Dicyclomine [Bentyl] 20 mg PO BID #20 tablet 08/15/19 Unknown Rx Promethazine [Phenergan] 25 mg PO Q8HR PRN #30 tab 08/15/19 Unknown Rx amLODIPine 10 mg PO DAILY #40 tab 08/15/19 Unknown Rx Sulfamethoxazole/Trimethoprim 1 each PO BID #20 tablet 09/20/19 Unknown Rx [Bactrim DS TAB] traMADoL [Ultram 50 MG tab] 50 mg PO Q6HR PRN #12 tablet 09/20/19 Unknown Rx ED Physical Exam - General Limitations: No Limitations General appearance: alert, obese - Head Head exam: Present: atraumatic, normocephalic - Eye Eye exam: Present: normal appearance, EOMI. Absent: nystagmus - ENT ENT exam: Present: normal exam, normal orophraynx, mucous membranes moist, normal external ear exam - Neck Neck exam: Present: normal inspection, full ROM. Absent: tenderness, meningismus - Respiratory Respiratory exam: Present: normal lung sounds bilaterally. Absent: respiratory distress, wheezes, rales, rhonchi, stridor, decreased breath sounds - Cardiovascular Cardiovascular Exam: Present: regular rate, tachycardia, normal heart sounds. Absent: bradycardia, irregular rhythm, systolic murmur, diastolic murmur, rubs, gallop - GI/Abdominal GI/Abdominal exam: Present: soft. Absent: distended, tenderness, guarding, rebound, rigid, pulsatile mass - Rectal Rectal exam: Present: deferred - Extremities Exam Extremities exam: Present: full ROM, pedal edema (1+ edema in the bilateral lower extremities), other (2+ pulses noted in the bilateral upper and lower extremities. There is no palpable cord. negative Homans sign. Muscular compartments are soft. The pelvis is stable.). Absent: normal inspection (On the right lateral aspect of the foot, there is a circumferential wound that is approximately 1.5 cm x 1.5 cm x 0.5 cm deep. There is granulation tissue noted. There is no redness, pus or streaking noted. There is no induration, or crepitus appreciated), calf tenderness - Back Exam Back exam: Present: normal inspection. Absent: tenderness, CVA tenderness (R), CVA tenderness (L), paraspinal tenderness, vertebral tenderness - Neurological Exam Neurological exam: Present: alert, oriented X3, other (No facial droop. Tongue midline. Extraocular movements intact bilaterally. Facial sensation intact to light touch in V1, V2, V3 distribution bilaterally. 5 and a 5 strength in 4 extremities. Sensation intact to light touch in 4 extremities.). Absent: motor sensory deficit - Psychiatric Psychiatric exam: Present: normal affect, normal mood - Skin Skin exam: Present: warm, dry, intact, other (Chronic granulation tissue noted on the right lateral foot) ED Course Vital Signs 11/21/21 11/21/21 09:38 09:51 Temperature 98.0 F Pulse Rate 90 Blood Pressure 163/109 [Left] O2 Sat by Pulse 99 Oximetry ED Medical Decision Making - Lab Data Vital Signs 11/21/21 11/21/21 09:38 09:51 Temperature 98.0 F Pulse Rate 90 Blood Pressure 163/109 [Left] O2 Sat by Pulse 99 Oximetry - Medical Decision Making Differential diagnosis, including but not limited to: Chronic right foot wound Assessment and plan: 46-year-old gentleman, who is afebrile, with reassuring vital signs, resolved tachycardia, presenting with a complaint of nontraumatic chronic right foot wound which does not appear to be superinfected. I have irrigated the wound thoroughly at expected, he did not appreciate any redness, pus, streaking, there is appropriate granulation tissue, and I do not appreciate evidence of acute infectious pathology or emergent pathology. He is not significantly tender at this time. Wet-to-dry dressings ordered, have also requested that nursing team provide patient with adequate supply for wound care for the next few days. Routine case management consult is placed in the medical record system to determine if patient is eligible for home wound care or home assistance. Have also advised patient to examine and check the wound on a daily basis, and to closely follow-up with our outpatient wound surgeon or wound care center. All questions answered, return precautions are reviewed. In the emergency room, I irrigated the right lateral foot wound with 500 cc of sterile saline at adequate pressure, and explored after irrigation, and did not detect any significant findings that would require admission or hospitalization or further diagnostic work-up in the emergency room. Critical care attestation.: If time is entered above; I have spent that time in minutes in the direct care of this critically ill patient, excluding procedure time. ED Disposition Clinical Impression: Wound of right foot Disposition: 01 HOME / SELF CARE / HOMELESS Is pt being admited?: No Does the pt Need Aspirin: No Condition: Good Additional Instructions: Recommend that the patient keep the wound dry and covered. Recommend that wound dressing gets changed every 2 to 3 days. Recommend compliance with outpatient long-term medications, recommend follow-up with the wound care center or general surgeon within the next week. Dr. Yu is a local general surgeon. Please examine the wound once every 24-48 hours. Make certain to wash with gentle soap and water once every 24-48 hours. Keep dry and covered. Please return to the emergency room right away with new pain, worsened pain, migration of pain, projectile vomiting, change in mental status, confusion, inability tolerate liquid feeds, new, worsened or different symptoms not present on the initial emergency room evaluation Referrals: MARIA LUZ YU DO [Staff Physician] - 3-5 Days [facility] [Provider Group] - 3-5 Days [facility] [Outside] - 3-5 Days Forms: Work/School Release Form(ED)
[2021-11-21 11:02] VITALS: BP 144/95
== END 2021-11-21 11:01 | disposition home or self-care (01) ==
LOC: ED 19:22
DX: S91.301A Unspecified open wound, right foot, initial encounter (principal); I10 Essential (primary) hypertension; E11.9 Type 2 diabetes mellitus without complications; K21.9 Gastro-esophageal reflux disease without esophagitis; N28.9 Disorder of kidney and ureter, unspecified; Z90.49 Acquired absence of other specified parts of digestive tract; Z79.899 Other long term (current) drug therapy; X58.XXXA Exposure to other specified factors, initial encounter; Y93.9 Activity, unspecified; Y92.89 Other specified places as the place of occurrence of the external cause; Y99.8 Other external cause status
CPT/HCPCS: 99283